=== PATIENT | male | born 1980 | race Caucasian/White ===

== ENCOUNTER 2018-11-18 13:01 | Emergency (ER) | payer MEDICAID ==
[~2018-11-18] VITALS: Ht 167.6 cm; Wt 56.8 kg
[2018-11-18 13:27] VITALS: BP 123/91
== END 2018-11-18 13:50 | disposition home or self-care (01) ==
LOC: ER 13:02
DX: F10.20 Alcohol dependence, uncomplicated (principal); Z88.8 Allergy status to other drugs, medicaments and biological substances; Y90.9 Presence of alcohol in blood, level not specified
CPT/HCPCS: 99281

== ENCOUNTER 2019-02-20 20:30 | Emergency (ER) | payer MEDICAID, OTHER ==
[~2019-02-20] VITALS: Ht 167.6 cm; Wt 55.9 kg
[2019-02-20 21:09] VITALS: BP 146/92
[2019-02-20 21:37] LABS: BASOPHILS # (AUTO) 0.1 X10'3 (0-0.2); BASOPHILS % (AUTO) 0.8 % (0-1); EOSINOPHILS # (AUTO) 0.1 X10'3 (0-0.9); EOSINOPHILS % (AUTO) 0.9 % (0-6); HEMATOCRIT 37.6 % (42.0-52.0); HEMOGLOBIN 13.1 g/dl (14.0-17.9); LYMPHOCYTES % (AUTO) 16.8 % (21-51); MEAN CORPUSCULAR HEMOGLOBIN 32.1 PG (27.0-31.0); MEAN CORPUSCULAR HGB CONC 34.8 g/dL (33.0-36.5); MEAN CORPUSCULAR VOLUME 92.3 FL (78-98); MEAN PLATELET VOLUME 6.5 FL (7.4-10.4); MONOCYTES # (AUTO) 0.7 X10'3 (0-0.9); MONOCYTES % (AUTO) 5.9 % (2-12); NEUTROPHILS % (AUTO) 75.6 % (42-75); PLATELET COUNT 321 X10'3 (140-440); RED BLOOD COUNT 4.08 X10'6 (4.70-6.10); RED CELL DISTRIBUTION WIDTH 13.6 % (11.5-14.5); WHITE BLOOD COUNT 11.9 X10'3 (4.5-11.0)
[2019-02-20] MEDS ORDERED: proCHLORperazine 10mg tablet PO ONE (21:40)
[2019-02-20] MEDS ORDERED: sulfamethoxazole/trimethoprim DS (800/160mg) tablet PO ONE (21:40)
[2019-02-20] MEDS ORDERED: bacitracin 15gm ointment TP ONE (21:40)
[2019-02-20 21:46] LABS: PARTIAL THROMBOPLASTIN TIME 32 SECONDS (22-32)
[2019-02-20 21:50] LABS: ALANINE AMINOTRANSFERASE 26 U/L (12-78); ALBUMIN/GLOBULIN RATIO 1.1 (1.1-1.5); ALKALINE PHOSPHATASE 122 IU/L (46-116); ANION GAP 14 (8-16); ASPARTATE AMINO TRANSFERASE 24 U/L (10-37); BILIRUBIN,TOTAL 0.4 MG/DL (0.1-1.0); BLOOD UREA NITROGEN 8 MG/DL (7-18); BUN/CREATININE RATIO 9.5 (5.4-32.0); CALCIUM 8.8 MG/DL (8.5-10.1); CHLORIDE 105 MMOL/L (99-107); CREATININE 0.84 MG/DL (0.60-1.10); GLUCOSE 93 MG/DL (70-104); POTASSIUM 3.1 MMOL/L (3.5-5.1); SODIUM 143 MMOL/L (135-145); TOTAL CARBON DIOXIDE 24.4 MMOL/L (24-32); TOTAL PROTEIN 7.5 G/DL (6.4-8.2); eGFR > 90 ML/MIN
[2019-02-20] MEDS ORDERED: SULF1TAB49 PO (22:10)
[2019-02-20] MEDS ORDERED: potassium Cl 20 mEq SR tablet PO STA (22:22)
== END 2019-02-20 22:34 | disposition home or self-care (01) ==
LOC: ER 20:30
DX: L02.413 Cutaneous abscess of right upper limb (principal); L02.11 Cutaneous abscess of neck; L03.113 Cellulitis of right upper limb; R79.1 Abnormal coagulation profile; Z59.0 Homelessness; Z88.8 Allergy status to other drugs, medicaments and biological substances; Z79.899 Other long term (current) drug therapy
CPT/HCPCS: 10060; 36415; 80053; 84145; 85025; 85610; 85730; 87040; 99284; Q0164

== ENCOUNTER 2019-02-27 06:54 | Emergency (ER) | payer OTHER ==
[~2019-02-27] VITALS: Ht 167.6 cm; Wt 56.0 kg
[~2019-02-27 06:54] MED LIST: SULF1TAB49 PO
[2019-02-27 06:57] VITALS: BP 121/88
[2019-02-27] MEDS ORDERED: TAM75C PO (07:31)
== END 2019-02-27 07:38 | disposition home or self-care (01) ==
LOC: ER 06:54
DX: J11.1 Influenza due to unidentified influenza virus with other respiratory manifestations (principal); Z59.0 Homelessness; Z88.8 Allergy status to other drugs, medicaments and biological substances; Z79.899 Other long term (current) drug therapy
CPT/HCPCS: 99283

== ENCOUNTER 2019-06-19 14:11 | Emergency (ER) | payer MEDICAID ==
[~2019-06-19] VITALS: Ht 167.6 cm; Wt 56.8 kg
[2019-06-19 15:00] LABS: BASOPHILS # (AUTO) 0.1 X10'3 (0-0.2); BASOPHILS % (AUTO) 0.7 % (0-1); EOSINOPHILS % (AUTO) 0.3 % (0-6); HEMATOCRIT 47.4 % (42.0-52.0); HEMOGLOBIN 15.8 g/dl (14.0-17.9); LYMPHOCYTES # (AUTO) 1.4 X10'3 (1.1-4.8); LYMPHOCYTES % (AUTO) 12.2 % (21-51); MEAN CORPUSCULAR HEMOGLOBIN 31.7 PG (27.0-31.0); MEAN CORPUSCULAR HGB CONC 33.4 g/dL (33.0-36.5); MEAN CORPUSCULAR VOLUME 95.1 FL (78-98); MEAN PLATELET VOLUME 6.8 FL (7.4-10.4); MONOCYTES # (AUTO) 0.6 X10'3 (0-0.9); MONOCYTES % (AUTO) 5.3 % (2-12); NEUTROPHILS # (AUTO) 9.2 X10'3 (1.8-7.7); NEUTROPHILS % (AUTO) 81.5 % (42-75); PLATELET COUNT 294 X10'3 (140-440); RED BLOOD COUNT 4.99 X10'6 (4.70-6.10); RED CELL DISTRIBUTION WIDTH 16.3 % (11.5-14.5); WHITE BLOOD COUNT 11.3 X10'3 (4.5-11.0)
[2019-06-19 15:18] LABS: ALANINE AMINOTRANSFERASE 103 U/L (12-78); ALBUMIN 4.3 G/DL (3.4-5.0); ALBUMIN/GLOBULIN RATIO 1.2 (1.1-1.5); ALKALINE PHOSPHATASE 106 IU/L (46-116); ANION GAP 17 (8-16); ASPARTATE AMINO TRANSFERASE 335 U/L (10-37); BILIRUBIN,TOTAL 0.9 MG/DL (0.1-1.0); BLOOD UREA NITROGEN 11 MG/DL (7-18); BUN/CREATININE RATIO 12.1 (5.4-32.0); CALCIUM 9.1 MG/DL (8.5-10.1); CHLORIDE 99 MMOL/L (99-107); CREATININE 0.91 MG/DL (0.60-1.10); GLUCOSE 71 MG/DL (70-104); LIPASE 1114 U/L (73-393); POTASSIUM 3.9 MMOL/L (3.5-5.1); SODIUM 138 MMOL/L (135-145); TOTAL CARBON DIOXIDE 22.4 MMOL/L (24-32); TOTAL PROTEIN 7.8 G/DL (6.4-8.2); eGFR > 90 ML/MIN
[2019-06-19] MEDS ORDERED: proCHLORperazine 10 MG/2 ml inj IV ONE (15:25)
[2019-06-19] MEDS ORDERED: normal saline 1000ml 1,000 ML IV ONE ×2 (15:25)
[2019-06-19] MEDS ORDERED: morphine 4 MG/ML inj SYRINge IV ONE (15:25)
[2019-06-19 15:33] LABS: CLARITY,URINE CLOUDY (Clear); COLOR,URINE YELLOW (Yellow); GLUCOSE, URINE NEGATIVE (Neg); KETONES,URINE >=80 mg/dl (Neg); LEUKOCYTE ESTERASE ,URINE NEGATIVE (Neg); NITRITES, URINE NEGATIVE (Neg); OCCULT BLOOD,URINE TRACE-INTACT (Neg); PROTEIN,URINE 100 mg/dl (Neg)
[2019-06-19 15:33] LABS: ETHANOL 0.142 GM/DL (0.0-0.010)
[2019-06-19 15:39] LABS: UA COLLECTION TYPE CLN CATCH MIDSTREAM
[2019-06-19 15:41] LABS: CAL OXALATE CRYSTALS 2+ /HPF (NEGATIVE); MUCUS STRANDS MODERATE /LPF (Neg); SQUAMOUS EPITHELIAL CELL,UR FEW /LPF (FEW)
[2019-06-19 15:42] LABS: BACTERIA,URINE FEW /HPF (Neg); FINE GRANULAR CAST 0-3 /LPF (NEGATIVE)
[2019-06-19 15:43] LABS: RBC,URINE 0-2 /HPF (0-2); WBC,URINE 0-4 /HPF (0-4)
[2019-06-19] MEDS ORDERED: OXYC-481 PO (16:31)
[2019-06-19] MEDS ORDERED: CHLO25CA10 PO (16:31)
[2019-06-19] MEDS ORDERED: PROC-8 PO (16:31)
[2019-06-19 17:03] LABS: URINE AMPHETAMINE SCREEN NEGATIVE (Neg); URINE BARBITUATE SCREEN NEGATIVE (Neg); URINE BENZODIAZEPINES SCREEN NEGATIVE (Neg); URINE CANNABINOID SCREEN POSITIVE (Neg); URINE COCAINE SCREEN NEGATIVE (Neg); URINE METHADONE SCREEN NEGATIVE (Neg); URINE OPIATE SCREEN NEGATIVE (Neg); URINE PHENCYCLIDINE SCREEN NEGATIVE (Neg)
[2019-06-19 17:27] VITALS: BP 123/71
== END 2019-06-19 17:29 | disposition home or self-care (01) ==
LOC: ER 14:12
DX: K85.90 Acute pancreatitis without necrosis or infection, unspecified (principal); R11.2 Nausea with vomiting, unspecified; E86.0 Dehydration; Z59.0 Homelessness; Z88.8 Allergy status to other drugs, medicaments and biological substances; Z79.899 Other long term (current) drug therapy
CPT/HCPCS: 36415; 80053; 80305; 80320; 81001; 83690; 85025; 96374; 96375; 99284; J0780; J2270; J7030

== ENCOUNTER 2019-07-11 07:24 | Day surgery (SDC) | payer MEDICAID ==
[~2019-07-11] VITALS: Ht 167.6 cm; Wt 61.6 kg
[~2019-07-11 07:24] MED LIST changes: +CHLO25CA10 PO; +OXYC-481 PO; +PROC-8 PO; -SULF1TAB49 PO
[2019-07-11 07:35] VITALS: BP 112/76
[2019-07-11] MEDS ORDERED: fentaNYL/PF 50MCG/1 ML 2ML syringe ONE (07:42)
[2019-07-11] MEDS ORDERED: LIDOcaine Viscous 15ml cup ONE (07:42)
[2019-07-11] MEDS ORDERED: MIDAZolam 5mg/5ml vial ONE (07:42)
[2019-07-11] MEDS ORDERED: PARO10TA85 PO (07:50)
[2019-07-11] MEDS ORDERED: LURA20TA PO (07:51)
[2019-07-11] MEDS ORDERED: PANT20TA3 PO (07:51)
[2019-07-11] MEDS ORDERED: CLON-529 PO (07:52)
[2019-07-11] MEDS ORDERED: MULT-1085 PO (07:52)
[2019-07-11] MEDS ORDERED: DIVA-81 PO (07:53)
[2019-07-11] MEDS ORDERED: CYAN250010 PO (07:54)
[2019-07-11] MEDS ORDERED: FERR-116 PO (07:54)
[2019-07-11 10:16] VITALS: BP 103/67
[2019-07-11 10:26] VITALS: BP 100/69
[2019-07-11 10:36] VITALS: BP 102/67
[2019-07-11 10:46] VITALS: BP 105/74
== END 2019-07-11 11:00 | disposition home or self-care (01) ==
LOC: GI LAB 07:24
PROVIDERS: ATTEND Internal Medicine Gastroenterology
DX: D50.0 Iron deficiency anemia secondary to blood loss (chronic) (principal); K29.50 Unspecified chronic gastritis without bleeding
CPT/HCPCS: 43239; 99152; J2250; J3010; J7040; A4620

== ENCOUNTER 2019-07-25 17:13 | Inpatient (IN) | payer MEDICAID ==
[~2019-07-25] VITALS: Ht 167.6 cm; Wt 59.1 kg
[~2019-07-25 17:13] MED LIST changes: -CHLO25CA10 PO; +CLON-529 PO; +CYAN250010 PO; +DIVA-81 PO; +FERR-116 PO; +LURA20TA PO; +MULT-1085 PO; -OXYC-481 PO; +PANT20TA3 PO; +PARO10TA85 PO; -PROC-8 PO
[2019-07-25 18:05] LABS: ALANINE AMINOTRANSFERASE 35 U/L (12-78); ALBUMIN 4.4 G/DL (3.4-5.0); ALBUMIN/GLOBULIN RATIO 1.3 (1.1-1.5); ALKALINE PHOSPHATASE 133 IU/L (46-116); ANION GAP 14 (8-16); ASPARTATE AMINO TRANSFERASE 38 U/L (10-37); BILIRUBIN,TOTAL 0.6 MG/DL (0.1-1.0); BLOOD UREA NITROGEN 16 MG/DL (7-18); BUN/CREATININE RATIO 15.5 (5.4-32.0); CALCIUM 8.6 MG/DL (8.5-10.1); CHLORIDE 101 MMOL/L (99-107); CREATININE 1.03 MG/DL (0.60-1.10); GLUCOSE 133 MG/DL (70-104); POTASSIUM 3.8 MMOL/L (3.5-5.1); SODIUM 140 MMOL/L (135-145); TOTAL CARBON DIOXIDE 24.8 MMOL/L (24-32); TOTAL PROTEIN 7.9 G/DL (6.4-8.2); eGFR 80 ML/MIN
[2019-07-25 18:06] LABS: LIPASE 2136 U/L (73-393)
[2019-07-25 18:15] LABS: BASOPHILS # (AUTO) 0.1 X10'3 (0-0.2); BASOPHILS % (AUTO) 0.5 % (0-1); EOSINOPHILS % (AUTO) 0.2 % (0-6); HEMATOCRIT 48.6 % (42.0-52.0); HEMOGLOBIN 16.8 g/dl (14.0-17.9); LYMPHOCYTES # (AUTO) 1.9 X10'3 (1.1-4.8); LYMPHOCYTES % (AUTO) 13.6 % (21-51); MEAN CORPUSCULAR HEMOGLOBIN 31.8 PG (27.0-31.0); MEAN CORPUSCULAR HGB CONC 34.5 g/dL (33.0-36.5); MEAN CORPUSCULAR VOLUME 92.2 FL (78-98); MEAN PLATELET VOLUME 7.2 FL (7.4-10.4); MONOCYTES # (AUTO) 0.7 X10'3 (0-0.9); MONOCYTES % (AUTO) 4.7 % (2-12); NEUTROPHILS # (AUTO) 11.4 X10'3 (1.8-7.7); PLATELET COUNT 235 X10'3 (140-440); RED BLOOD COUNT 5.28 X10'6 (4.70-6.10); RED CELL DISTRIBUTION WIDTH 14.7 % (11.5-14.5); WHITE BLOOD COUNT 14.1 X10'3 (4.5-11.0)
[2019-07-25] MEDS ORDERED: normal saline 1000ML IV soln IVB ONE (18:30)
[2019-07-25 18:50] LABS: CLARITY,URINE SLIGHTLY CLOUDY (Clear); COLOR,URINE YELLOW (Yellow); GLUCOSE, URINE NEGATIVE (Neg); KETONES,URINE TRACE mg/dl (Neg); LEUKOCYTE ESTERASE ,URINE NEGATIVE (Neg); NITRITES, URINE NEGATIVE (Neg); OCCULT BLOOD,URINE NEGATIVE (Neg); PROTEIN,URINE 100 mg/dl (Neg)
[2019-07-25 19:08] LABS: UA COLLECTION TYPE NON-SPECIFIED
[2019-07-25 19:10] LABS: BACTERIA,URINE NONE SEEN /HPF (Neg); SQUAMOUS EPITHELIAL CELL,UR NONE SEEN /LPF (FEW); WBC,URINE NONE SEEN /HPF (0-4)
[2019-07-25 19:11] LABS: HYALINE CASTS 0-3 /LPF (NEGATIVE); MUCUS STRANDS MANY /LPF (Neg); RBC,URINE 0-2 /HPF (0-2)
[2019-07-25 19:55] LABS: ETHANOL 0.229 GM/DL (0.0-0.010); MAGNESIUM 1.9 MG/DL (1.5-2.4)
[2019-07-25] MEDS ORDERED: iohexol 300mg/ml 100ml inj. ONE (19:55)
[2019-07-25] MEDS ORDERED: proCHLORperazine 10 MG/2 ml inj IV ONE (20:00)
[2019-07-25] MEDS ORDERED: ketorolac tromethamine 15mg/ml inj. IV ONE (20:00)
[2019-07-25] MEDS ORDERED: diphenhydrAMINE 50 mg/ml inj IV ONE (20:00)
[2019-07-25 20:03] LABS: PARTIAL THROMBOPLASTIN TIME 27 SECONDS (22-32)
[2019-07-25] MEDS ORDERED: magnesium 4gm in 100ml NS 100 ML IV PRN (20:40)
[2019-07-25] MEDS ORDERED: thiamine inj. 100 MG in normal saline 100ml IV soln 100 ML IV ONE (20:40)
[2019-07-25] MEDS ORDERED: acetaminophen 325mg tablet PO PRN ×2 (20:40)
[2019-07-25] MEDS ORDERED: magnesium Cl slow-release 64mg tablet PO PRN (20:40)
[2019-07-25] MEDS ORDERED: HYDROmorphone inj. 0.5 MG/0.5 ML DISP.SYRIN IV PRN (20:40)
[2019-07-25] MEDS ORDERED: magnesium hydroxide 30ml (MOM) UD suspension PO PRN (20:40)
[2019-07-25] MEDS ORDERED: potassium Cl 20 mEq SR tablet PO PRN ×2 (20:40)
[2019-07-25] MEDS ORDERED: HYDROcodone/acetaminophen 5mg/325mg tablet PO PRN (20:40)
[2019-07-25] MEDS ORDERED: potassium CL 10mEq/100ml bag 100 ML IV PRN (20:40)
[2019-07-25] MEDS ORDERED: metoclopramide 5 mg/ml inj IV PRN (20:40)
[2019-07-25] MEDS ORDERED: magnesium 2GM in 50ml NS 50 ML IV PRN (20:40)
[2019-07-25] MEDS ORDERED: haloperidol lactate 5mg/ml inj IM PRN (20:40)
[2019-07-25] MEDS ORDERED: HYDROcodone/acetaminophen 10/325mg tab PO PRN (20:40)
[2019-07-25] MEDS ORDERED: haloperidol 5mg tablet PO PRN (20:40)
[2019-07-25] MEDS ORDERED: mag hydrox/Alum hydrox/simeth 30ml oral suspension PO PRN (20:40)
[2019-07-25] MEDS ORDERED: LORazepam 2 mg/ml vial IV PRN (20:40)
[2019-07-25] MEDS: folic acid inj. 2 MG, thiamine inj. 100 MG, MVI, adult No.4 with vit. K 10 ML in dextro... IV SCH ×4 (21:00)
[2019-07-25] MEDS ORDERED: temazepam 15mg capsule PO PRN (21:00)
[2019-07-25] MEDS: folic acid 1mg tablet PO SCH (21:06)
[2019-07-25] MEDS: normal saline 1000ml 1,000 ML IV SCH (21:07)
[2019-07-25] MEDS: thiamine 100mg tablet PO SCH (21:07)
[2019-07-25] MEDS: HYDROmorphone 1 mg/ml syringe IV PRN (22:53)
[2019-07-26] VITALS: BP 124/89
[2019-07-26] MEDS: HYDROmorphone 1 mg/ml syringe IV PRN ×6 (02:59→21:04)
[2019-07-26 05:37] LABS: BASOPHILS % (AUTO) 0.3 % (0-1); EOSINOPHILS # (AUTO) 0.1 X10'3 (0-0.9); EOSINOPHILS % (AUTO) 1.1 % (0-6); HEMATOCRIT 40.3 % (42.0-52.0); HEMOGLOBIN 13.7 g/dl (14.0-17.9); LYMPHOCYTES # (AUTO) 1.7 X10'3 (1.1-4.8); LYMPHOCYTES % (AUTO) 13.9 % (21-51); MEAN CORPUSCULAR HEMOGLOBIN 31.3 PG (27.0-31.0); MEAN CORPUSCULAR HGB CONC 33.9 g/dL (33.0-36.5); MEAN CORPUSCULAR VOLUME 92.3 FL (78-98); MEAN PLATELET VOLUME 7.4 FL (7.4-10.4); MONOCYTES # (AUTO) 0.6 X10'3 (0-0.9); MONOCYTES % (AUTO) 4.8 % (2-12); NEUTROPHILS # (AUTO) 9.7 X10'3 (1.8-7.7); NEUTROPHILS % (AUTO) 79.9 % (42-75); PLATELET COUNT 169 X10'3 (140-440); RED BLOOD COUNT 4.37 X10'6 (4.70-6.10); RED CELL DISTRIBUTION WIDTH 14.5 % (11.5-14.5); WHITE BLOOD COUNT 12.2 X10'3 (4.5-11.0)
[2019-07-26 05:50] LABS: ALANINE AMINOTRANSFERASE 30 U/L (12-78); ALBUMIN 3.3 G/DL (3.4-5.0); ALBUMIN/GLOBULIN RATIO 1.2 (1.1-1.5); ALKALINE PHOSPHATASE 115 IU/L (46-116); ANION GAP 11 (8-16); ASPARTATE AMINO TRANSFERASE 27 U/L (10-37); BILIRUBIN,TOTAL 0.7 MG/DL (0.1-1.0); BLOOD UREA NITROGEN 13 MG/DL (7-18); BUN/CREATININE RATIO 16.5 (5.4-32.0); CALCIUM 7.2 MG/DL (8.5-10.1); CHLORIDE 109 MMOL/L (99-107); CHOLESTEROL 116 MG/DL (0-200); CREATININE 0.79 MG/DL (0.60-1.10); GLUCOSE 99 MG/DL (70-104); HDL CHOLESTEROL 57 MG/DL (35-60); LDL CHOLESTEROL 17 MG/DL (50-100); MAGNESIUM 1.4 MG/DL (1.5-2.4); POTASSIUM 3.3 MMOL/L (3.5-5.1); SODIUM 144 MMOL/L (135-145); TOTAL CARBON DIOXIDE 23.8 MMOL/L (24-32); TRIGLYCERIDES 341 MG/DL (20-135); eGFR > 90 ML/MIN
--- NOTE | 2019-07-26 06:16 | NUR ---
Patient in room AL 359. I have received report from ESTIVEN Cervantes and had the opportunity to ask questions and assume patient care.
[2019-07-26] MEDS: K and/or MAG REPLACEMENT MC SCH ×2 (06:56→20:00)
[2019-07-26 07:00] VITALS: BP 158/93
[2019-07-26] MEDS: folic acid inj. 2 MG, thiamine inj. 100 MG, MVI, adult No.4 with vit. K 10 ML in dextro... IV SCH ×4 (07:38)
[2019-07-26] MEDS: potassium CL 10mEq/100ml bag 100 ML IV PRN ×4 (07:39→13:32)
[2019-07-26] MEDS: enoxaparin 40mg/0.4ml syringe SUBCUT SCH (07:40)
[2019-07-26] MEDS: pantoprazole 40mg Tablet.DR PO SCH (07:41)
[2019-07-26] MEDS: normal saline 1000ml 1,000 ML IV SCH ×3 (07:49→21:13)
[2019-07-26] MEDS: folic acid 1mg tablet PO SCH (08:00)
[2019-07-26] MEDS: thiamine 100mg tablet PO SCH (08:00)
[2019-07-26] MEDS: multivitamins, therapeutics tablet PO SCH (09:23)
[2019-07-26 11:00] VITALS: BP 142/96
--- NOTE | 2019-07-26 18:11 | NUR ---
Problems reprioritized. Patient report given, questions answered & plan of care reviewed with ESTIVEN Cervantes.
[2019-07-26 19:00] VITALS: BP 155/100
--- NOTE | 2019-07-26 20:41 | NUR ---
Patient in room AL 359. I have received report from ESTIVEN Cervantes and had the opportunity to ask questions and assume patient care.
[2019-07-27 00:25] VITALS: BP 145/91
[2019-07-27] MEDS: HYDROmorphone 1 mg/ml syringe IV PRN (01:14)
[2019-07-27] MEDS: normal saline 1000ml 1,000 ML IV SCH (05:21)
[2019-07-27 05:23] LABS: ALANINE AMINOTRANSFERASE 23 U/L (12-78); ALBUMIN 3.3 G/DL (3.4-5.0); ALKALINE PHOSPHATASE 124 IU/L (46-116); ANION GAP 11 (8-16); ASPARTATE AMINO TRANSFERASE 31 U/L (10-37); BILIRUBIN,TOTAL 0.8 MG/DL (0.1-1.0); BLOOD UREA NITROGEN 2 MG/DL (7-18); CALCIUM 7.8 MG/DL (8.5-10.1); CHLORIDE 101 MMOL/L (99-107); CREATININE 0.67 MG/DL (0.60-1.10); GLUCOSE 100 MG/DL (70-104); LIPASE 927 U/L (73-393); MAGNESIUM 2.3 MG/DL (1.5-2.4); POTASSIUM 3.2 MMOL/L (3.5-5.1); SODIUM 135 MMOL/L (135-145); TOTAL CARBON DIOXIDE 22.8 MMOL/L (24-32); TOTAL PROTEIN 6.6 G/DL (6.4-8.2); eGFR > 90 ML/MIN
[2019-07-27 05:28] LABS: BASOPHILS % (AUTO) 0.5 % (0-1); EOSINOPHILS # (AUTO) 0.2 X10'3 (0-0.9); EOSINOPHILS % (AUTO) 2.6 % (0-6); HEMATOCRIT 40.3 % (42.0-52.0); HEMOGLOBIN 13.9 g/dl (14.0-17.9); LYMPHOCYTES # (AUTO) 1.1 X10'3 (1.1-4.8); LYMPHOCYTES % (AUTO) 12.8 % (21-51); MEAN CORPUSCULAR HEMOGLOBIN 31.8 PG (27.0-31.0); MEAN CORPUSCULAR HGB CONC 34.4 g/dL (33.0-36.5); MEAN CORPUSCULAR VOLUME 92.3 FL (78-98); MEAN PLATELET VOLUME 7.8 FL (7.4-10.4); MONOCYTES # (AUTO) 0.4 X10'3 (0-0.9); NEUTROPHILS # (AUTO) 6.6 X10'3 (1.8-7.7); NEUTROPHILS % (AUTO) 79.1 % (42-75); PLATELET COUNT 134 X10'3 (140-440); RED BLOOD COUNT 4.37 X10'6 (4.70-6.10); WHITE BLOOD COUNT 8.3 X10'3 (4.5-11.0)
[2019-07-27 06:00] VITALS: BP 154/95
--- NOTE | 2019-07-27 06:23 | NUR ---
Problems reprioritized. Patient report given, questions answered & plan of care reviewed with ESTIVEN Cristobal.
--- NOTE | 2019-07-27 06:46 | NUR ---
Patient in room AL 359. I have received report from Unique JEAN-BAPTISTE and had the opportunity to ask questions and assume patient care.
[2019-07-27 08:00] VITALS: BP 154/95
[2019-07-27] MEDS: K and/or MAG REPLACEMENT MC SCH (08:00)
[2019-07-27] MEDS: multivitamins, therapeutics tablet PO SCH (08:09)
[2019-07-27] MEDS: folic acid 1mg tablet PO SCH (08:09)
[2019-07-27] MEDS: pantoprazole 40mg Tablet.DR PO SCH (08:10)
[2019-07-27] MEDS: thiamine 100mg tablet PO SCH (08:10)
[2019-07-27] MEDS: enoxaparin 40mg/0.4ml syringe SUBCUT SCH (08:11)
[2019-07-27] MEDS ORDERED: diphenhydrAMINE 25mg capsule PO ONE (10:10)
[2019-07-27] MEDS ORDERED: HYDR-4383 PO (10:36)
--- NOTE | 2019-07-27 11:29 | NUR ---
Pt Dc to a [facility] room he has rented. Pt is an out pt to [place] following a sobriety program. Pt is A & O x4, in no apparent distress. Pt packed his belongings and stated he will walk 2 blocks to his hotel. Pt's potassium is 3.2 being replaced. Pt took a 20mEq and Dr Forbes is OK with pt being DC home without having the remaining 2 doses. Pt states he will go back and stay free of alcohol.
[2019-07-27] MEDS ORDERED: LORazepam 1 MG tablet PO PRN (20:40)
[2019-07-27] MEDS ORDERED: LORazepam 2 mg/ml vial IV PRN (20:40)
[2019-07-29] MEDS ORDERED: LORazepam 2 mg/ml vial IV PRN (20:40)
[2019-07-29] MEDS ORDERED: LORazepam 1 MG tablet PO PRN (20:40)
== END 2019-07-27 11:30 | disposition home or self-care (01) | DRG 282 ==
LOC: ER 17:14 → ED HOLD 20:39 → SUR 3N 22:49
PROVIDERS: ADMIT Family Medicine; ATTEND Internal Medicine
PROC: BW211ZZ Computerized Tomography (CT Scan) of Abdomen and Pelvis using Low Osmolar Contrast (ICD-10-PCS; principal; 2019-07-25)
DX: K85.20 Alcohol induced acute pancreatitis without necrosis or infection (principal); E87.6 Hypokalemia; F10.20 Alcohol dependence, uncomplicated; I10 Essential (primary) hypertension; R01.1 Cardiac murmur, unspecified; F32.9 Major depressive disorder, single episode, unspecified; Z59.0 Homelessness; Z88.8 Allergy status to other drugs, medicaments and biological substances
CPT/HCPCS: 36415; 74177; 80053; 80061; 80320; 81001; 83690; 83735; 85025; 85610; 85730; 87081; 99285; G0378; J0780; J1170; J1200; J1650; J1885; J3411; J3475; J3480; J3490; J7030; J7060; Q0163; Q9967

== ENCOUNTER 2019-09-11 09:17 | Day surgery (SDC) | payer MEDICAID ==
[2019-09-01 14:43] LABS: BASOPHILS % (AUTO) 0.7 % (0-1); EOSINOPHILS # (AUTO) 0.2 X10'3 (0-0.9); EOSINOPHILS % (AUTO) 3.5 % (0-6); LYMPHOCYTES # (AUTO) 0.9 X10'3 (1.1-4.8); LYMPHOCYTES % (AUTO) 17.7 % (21-51); MEAN CORPUSCULAR HEMOGLOBIN 33.1 PG (27.0-31.0); MEAN CORPUSCULAR HGB CONC 33.8 g/dL (33.0-36.5); MEAN CORPUSCULAR VOLUME 97.8 FL (78-98); MEAN PLATELET VOLUME 7.3 FL (7.4-10.4); MONOCYTES # (AUTO) 0.5 X10'3 (0-0.9); NEUTROPHILS # (AUTO) 3.5 X10'3 (1.8-7.7); NEUTROPHILS % (AUTO) 68.1 % (42-75); PRE OP HEMOGLOBIN 13.5 g/dL (14.0-17.9); PRE OP PLATELET COUNT 225 X10'3 (140-440); RED BLOOD COUNT 4.09 X10'6 (4.70-6.10)
[2019-09-01 14:55] LABS: ALBUMIN 4.5 G/DL (3.4-5.0); ALBUMIN/GLOBULIN RATIO 1.1 (1.1-1.5); ALKALINE PHOSPHATASE 147 IU/L (46-116); BLOOD UREA NITROGEN 8 MG/DL (7-18); CALCIUM 10.3 MG/DL (8.5-10.1); CHLORIDE 93 MMOL/L (99-107); PRE OP ANION GAP 16 (8-16); PRE OP BILIRUB, TOTAL 0.8 MG/DL (0.0-1.0); PRE OP GLUCOSE 89 MG/DL (70-104); PRE OP POTASSIUM 3.5 MMOL/L (3.4-5.1); PRE OP SODIUM 132 MMOL/L (135-145); TOTAL CARBON DIOXIDE 23.5 MMOL/L (24-32); TOTAL PROTEIN 8.6 G/DL (6.4-8.2); eGFR > 90 ML/MIN
[2019-09-01 14:58] LABS: PRE OP ALT 84 U/L (30-65); PRE OP AST 116 U/L (10-37)
[2019-09-01 15:15] LABS: PRE OP PROTIME 10.5 SECONDS (9.0-12.0)
[~2019-09-11] VITALS: Ht 167.6 cm; Wt 59.0 kg
[2019-09-11] VITALS (9 sets, daily range): BP systolic 114–173; BP diastolic 75–113
[~2019-09-11 09:17] MED LIST changes: -CLON-529 PO; +CLON0.1T2 PO; -DIVA-81 PO; -LURA20TA PO; -PARO10TA85 PO; +VANCOMYCIN INJ 1000 MG in NORMAL SALINE 250ml IV.SOLN IV ONE; +acetaminophen 325mg tablet PO ONE; +ascorbic acid 500mg tablet PO ONE; +cefazolin/dext.iso 2gm/50ml 50 ML IV ONE; +celeCOXIB 100mg capsule PO ONE; +duloxetine 20mg capsule.DR PO ONE; +famotidine 20mg tablet PO ONE; +gabapentin 300mg capsule PO ONE; +metoclopramide 5 mg/ml inj IV ONE; +oxyCODONE SR 10mg (sust. release) tab -2 tabs (20mg) PO ONE; +ringers solution, lacted 1,000 ML IV SCH; +tranexamic acid 1gm/0.7% sal. 100 ML IV ONE
[2019-09-11] MEDS ORDERED: NALT50TA PO (09:41)
[2019-09-11] MEDS ORDERED: LURA40TA3 PO (09:41)
[2019-09-11] MEDS ORDERED: BUPIVAcaine/PF 2.5 mg/ml (0.25%) 30ml vial ONE (09:53)
[2019-09-11] MEDS ORDERED: methylPREDNISolone sod succ 125mg/2ml vial ONE (09:53)
[2019-09-11] MEDS ORDERED: aprepitant 40mg capsule PO ONE (09:58)
[2019-09-11] MEDS ORDERED: cloNIDine hcl/PF 100mcg/ml inj ONE (10:00)
[2019-09-11] MEDS ORDERED: fentaNYL/PF 50MCG/1 ML 2ML syringe ONE (10:01)
[2019-09-11] MEDS ORDERED: ringers solution, lacted 1,000 ML IV SCH (10:04)
[2019-09-11] MEDS ORDERED: morphine 2 MG/ML inj. syringe IV PRN (10:05)
[2019-09-11] MEDS ORDERED: morphine 4 MG/ML inj SYRINge IV PRN (10:05)
[2019-09-11] MEDS ORDERED: meperidine/PF 25mg/ml syringe IV PRN (10:05)
[2019-09-11] MEDS ORDERED: proCHLORperazine 10 MG/2 ml inj IV PRN (10:05)
[2019-09-11] MEDS ORDERED: proMETHazine 25mg rectal suppository RC PRN (10:05)
[2019-09-11] MEDS ORDERED: HYDROmorphone inj. 0.5 MG/0.5 ML DISP.SYRIN IV PRN ×2 (10:05)
[2019-09-11] MEDS ORDERED: midazolam 2 mg/2 ml injection ONE (10:08)
[2019-09-11] MEDS ORDERED: sevoflurane 250ml liquid IH ONE (10:12)
[2019-09-11] MEDS ORDERED: ROPIVAcaine 0.5% (5mg/ml) 30ml vial ONE (11:12)
[2019-09-11] MEDS ORDERED: LIDOcaine 2% (20mg/ml) 5ml vial ONE (11:12)
[2019-09-11] MEDS ORDERED: ePHEDrine 50MG/ML INJ. ONE (11:12)
[2019-09-11] MEDS ORDERED: propofol inj 20 ML IV ONE (11:12)
[2019-09-11] MEDS ORDERED: dexamethasone sod phosphate 4mg/ml inj. ONE (11:12)
--- NOTE | 2019-09-11 12:10 | NUR ---
Received from OR via [facility] , accompanied by Anesthesiologist PILAR and report given by Anesthesiolgist. PATIENT WITH 20G PIV IN LEFT UE RUNNING LR AT 100. DENIES PAIN. RIGHT ELBOW AND WRIST DRESSINGS CDI. VSS. Addendum: 09/11/19 at 1220 by Chris Martínez RN, RN Amended: Links added.
--- NOTE | 2019-09-11 13:30 | NUR ---
I HAVE REVIEWED D/C INSTRUCTIONS WITH PATIENT AND FAMILY AND THEY HAVE VERBALIZED UNDERSTANDING. PATIENT D/C HOME WITH ALL BELONGINGS AND FAMILY GAVE TRANSPORT HOME. PATIENTS ANESTHEOLOGIST CALLED RE BP. DECIDED THAT HE DID NOT WISH TO TREAT HTN AT THIS TIME- ONLY TO ADVISE PATIENT TO SEE HIM PRIMARY PHYSICIAN FOR BP MEDS (WHICH HE IS ALREADY ON.) OUT [facility]IA [facility] Addendum: 09/11/19 at 1339 by Chris Lam - ESTIVEN JEAN-BAPTISTE Amended: Links added.
== END 2019-09-11 13:30 | disposition home or self-care (01) ==
LOC: PAS 09:17
PROVIDERS: ATTEND Orthopaedic Surgery
DX: G56.01 Carpal tunnel syndrome, right upper limb (principal); G56.21 Lesion of ulnar nerve, right upper limb; M79.641 Pain in right hand; Z79.899 Other long term (current) drug therapy; Z79.01 Long term (current) use of anticoagulants
CPT/HCPCS: 36415; 64417; 64718; 64721; 80053; 82948; 85025; 85610; 85730; 93005; A6222; J0735; J1100; J2001; J2250; J2704; J2930; J3010; J3370; J3490; J8501; L3999; U0003; A4215; A4618; A6250; A6449; A7000; J2795; J7120

== ENCOUNTER 2019-10-20 22:35 | Emergency (ER) | payer MEDICAID ==
[~2019-10-20] VITALS: Ht 167.6 cm; Wt 59.1 kg
[~2019-10-20 22:35] MED LIST changes: +LURA40TA3 PO; -MULT-1085 PO; +NALT50TA PO; -VANCOMYCIN INJ 1000 MG in NORMAL SALINE 250ml IV.SOLN IV ONE; -acetaminophen 325mg tablet PO ONE; -ascorbic acid 500mg tablet PO ONE; -cefazolin/dext.iso 2gm/50ml 50 ML IV ONE; -celeCOXIB 100mg capsule PO ONE; -duloxetine 20mg capsule.DR PO ONE; -famotidine 20mg tablet PO ONE; -gabapentin 300mg capsule PO ONE; -metoclopramide 5 mg/ml inj IV ONE; -oxyCODONE SR 10mg (sust. release) tab -2 tabs (20mg) PO ONE; -ringers solution, lacted 1,000 ML IV SCH; -tranexamic acid 1gm/0.7% sal. 100 ML IV ONE
[2019-10-20 23:29] LABS: BASOPHILS # (AUTO) 0.1 X10'3 (0-0.2); BASOPHILS % (AUTO) 0.7 % (0-1); EOSINOPHILS % (AUTO) 0.4 % (0-6); HEMATOCRIT 41.4 % (42.0-52.0); HEMOGLOBIN 14.2 g/dl (14.0-17.9); LYMPHOCYTES # (AUTO) 1.7 X10'3 (1.1-4.8); LYMPHOCYTES % (AUTO) 17.4 % (21-51); MEAN CORPUSCULAR HEMOGLOBIN 32.8 PG (27.0-31.0); MEAN CORPUSCULAR HGB CONC 34.3 g/dL (33.0-36.5); MEAN CORPUSCULAR VOLUME 95.4 FL (78-98); MEAN PLATELET VOLUME 6.4 FL (7.4-10.4); MONOCYTES # (AUTO) 0.3 X10'3 (0-0.9); NEUTROPHILS # (AUTO) 7.7 X10'3 (1.8-7.7); NEUTROPHILS % (AUTO) 78.5 % (42-75); PLATELET COUNT 201 X10'3 (140-440); RED BLOOD COUNT 4.34 X10'6 (4.70-6.10); RED CELL DISTRIBUTION WIDTH 14.1 % (11.5-14.5); WHITE BLOOD COUNT 9.8 X10'3 (4.5-11.0)
[2019-10-20 23:44] LABS: ALANINE AMINOTRANSFERASE 38 U/L (12-78); ALBUMIN 4.2 G/DL (3.4-5.0); ALBUMIN/GLOBULIN RATIO 1.3 (1.1-1.5); ALKALINE PHOSPHATASE 138 IU/L (46-116); ANION GAP 16 (8-16); ASPARTATE AMINO TRANSFERASE 33 U/L (10-37); BILIRUBIN,TOTAL 0.3 MG/DL (0.1-1.0); BLOOD UREA NITROGEN 16 MG/DL (7-18); BUN/CREATININE RATIO 17.4 (5.4-32.0); CALCIUM 7.9 MG/DL (8.5-10.1); CHLORIDE 103 MMOL/L (99-107); CREATININE 0.92 MG/DL (0.60-1.10); GLUCOSE 89 MG/DL (70-104); LIPASE 1043 U/L (73-393); POTASSIUM 3.6 MMOL/L (3.5-5.1); SODIUM 139 MMOL/L (135-145); TOTAL CARBON DIOXIDE 19.6 MMOL/L (24-32); TOTAL PROTEIN 7.5 G/DL (6.4-8.2); eGFR > 90 ML/MIN
[2019-10-20 23:53] LABS: CLARITY,URINE CLOUDY (Clear); COLOR,URINE YELLOW (Yellow); GLUCOSE, URINE NEGATIVE (Neg); KETONES,URINE 15 mg/dl (Neg); LEUKOCYTE ESTERASE ,URINE NEGATIVE (Neg); NITRITES, URINE NEGATIVE (Neg); OCCULT BLOOD,URINE NEGATIVE (Neg); PROTEIN,URINE 30 mg/dl (Neg); UA COLLECTION TYPE CLN CATCH MIDSTREAM; UROBILINOGEN,URINE 0.2 E.U/dL (0.2-1.0)
[2019-10-20 23:58] LABS: AMORPHOUS URATES 4+; BACTERIA,URINE NONE SEEN /HPF (Neg); RBC,URINE NONE SEEN /HPF (0-2); SQUAMOUS EPITHELIAL CELL,UR FEW /LPF (FEW); WBC,URINE NONE SEEN /HPF (0-4)
[2019-10-21] MEDS ORDERED: normal saline 1000ml 1,000 ML IV ONE
[2019-10-21] MEDS ORDERED: morphine 10mg/ml inj. IV ONE (00:10)
[2019-10-21] MEDS ORDERED: metoclopramide 5 mg/ml inj IV ONE (00:10)
[2019-10-21] MEDS ORDERED: oxyCODONE/APAP 10/325mg tablet PO ONE (01:25)
--- NOTE | 2019-10-21 01:51 | NUR ---
pt drove self here. as pt to be given narcotics, he will leave his car in parking lot and [facility] and he will return later today to pu vehicle.
[2019-10-21] MEDS ORDERED: METO5TAB85 PO (02:30)
[2019-10-21] MEDS ORDERED: OXYC-658 PO (02:30)
[2019-10-21 03:06] VITALS: BP 120/78
[2019-10-22] MEDS ORDERED: OXYC-658 PO (17:08)
[2019-10-22] MEDS ORDERED: PROC-8 PO (17:12)
== END 2019-10-21 02:48 | disposition home or self-care (01) ==
LOC: ER 22:36
DX: K85.90 Acute pancreatitis without necrosis or infection, unspecified (principal); R19.7 Diarrhea, unspecified; F31.9 Bipolar disorder, unspecified; Z59.0 Homelessness; Z72.89 Other problems related to lifestyle; Z88.5 Allergy status to narcotic agent; Z79.899 Other long term (current) drug therapy
CPT/HCPCS: 36415; 80053; 81001; 83690; 85025; 96361; 96374; 96375; 99284; J2270; J2765; J7030

== ENCOUNTER 2019-10-22 15:15 | Emergency (ER) | payer MEDICAID ==
[~2019-10-22] VITALS: Ht 167.6 cm; Wt 55.3 kg
[~2019-10-22 15:15] MED LIST changes: +METO5TAB85 PO; +OXYC-658 PO
[2019-10-22 15:46] LABS: BASOPHILS % (AUTO) 0.6 % (0-1); EOSINOPHILS # (AUTO) 0.1 X10'3 (0-0.9); HEMATOCRIT 38.7 % (42.0-52.0); HEMOGLOBIN 13.1 g/dl (14.0-17.9); LYMPHOCYTES # (AUTO) 2.1 X10'3 (1.1-4.8); LYMPHOCYTES % (AUTO) 34.6 % (21-51); MEAN CORPUSCULAR HEMOGLOBIN 31.9 PG (27.0-31.0); MEAN CORPUSCULAR HGB CONC 33.9 g/dL (33.0-36.5); MEAN CORPUSCULAR VOLUME 94.1 FL (78-98); MEAN PLATELET VOLUME 6.6 FL (7.4-10.4); MONOCYTES # (AUTO) 0.5 X10'3 (0-0.9); MONOCYTES % (AUTO) 8.1 % (2-12); NEUTROPHILS # (AUTO) 3.5 X10'3 (1.8-7.7); NEUTROPHILS % (AUTO) 55.7 % (42-75); PLATELET COUNT 213 X10'3 (140-440); RED BLOOD COUNT 4.11 X10'6 (4.70-6.10); WHITE BLOOD COUNT 6.2 X10'3 (4.5-11.0)
[2019-10-22 16:07] LABS: ALANINE AMINOTRANSFERASE 34 U/L (12-78); ALBUMIN 4.4 G/DL (3.4-5.0); ALBUMIN/GLOBULIN RATIO 1.3 (1.1-1.5); ALKALINE PHOSPHATASE 146 IU/L (46-116); AMYLASE 144 U/L (25-115); ANION GAP 13 (8-16); ASPARTATE AMINO TRANSFERASE 49 U/L (10-37); BILIRUBIN,TOTAL 0.5 MG/DL (0.1-1.0); BLOOD UREA NITROGEN 4 MG/DL (7-18); BUN/CREATININE RATIO 4.7 (5.4-32.0); CALCIUM 8.5 MG/DL (8.5-10.1); CHLORIDE 97 MMOL/L (99-107); CREATININE 0.86 MG/DL (0.60-1.10); GLUCOSE 161 MG/DL (70-104); POTASSIUM 3.2 MMOL/L (3.5-5.1); SODIUM 134 MMOL/L (135-145); TOTAL CARBON DIOXIDE 23.7 MMOL/L (24-32); TOTAL PROTEIN 7.9 G/DL (6.4-8.2); eGFR > 90 ML/MIN
[2019-10-22 16:11] LABS: LIPASE 1829 U/L (73-393)
[2019-10-22 16:54] VITALS: BP 135/100
[2019-10-22] MEDS ORDERED: morphine 4 MG/ML inj SYRINge IM ONE (17:05)
[2019-10-22] MEDS ORDERED: proCHLORperazine 10mg tablet PO ONE (17:05)
[2019-10-22] MEDS ORDERED: OXYC-658 PO (17:08)
[2019-10-22 17:11] LABS: CLARITY,URINE CLEAR (Clear); COLOR,URINE STRAW (Yellow); GLUCOSE, URINE NEGATIVE (Neg); KETONES,URINE NEGATIVE (Neg); LEUKOCYTE ESTERASE ,URINE NEGATIVE (Neg); NITRITES, URINE NEGATIVE (Neg); OCCULT BLOOD,URINE NEGATIVE (Neg); PROTEIN,URINE NEGATIVE (Neg); UROBILINOGEN,URINE 0.2 E.U/dL (0.2-1.0)
[2019-10-22] MEDS ORDERED: PROC-8 PO (17:12)
[2019-10-22 17:14] LABS: UA COLLECTION TYPE CLN CATCH MIDSTREAM
== END 2019-10-22 18:00 | disposition home or self-care (01) ==
LOC: ER 15:16
DX: K85.90 Acute pancreatitis without necrosis or infection, unspecified (principal); F31.9 Bipolar disorder, unspecified; Z72.89 Other problems related to lifestyle; Z59.0 Homelessness; Z88.8 Allergy status to other drugs, medicaments and biological substances; Z79.899 Other long term (current) drug therapy
CPT/HCPCS: 36415; 80053; 81003; 82150; 83690; 85025; 96372; 99283; J2270; Q0164

== ENCOUNTER 2019-11-19 06:50 | Emergency (ER) | payer MEDICAID ==
[~2019-11-19] VITALS: Ht 167.6 cm; Wt 55.7 kg
[~2019-11-19 06:50] MED LIST changes: +PANT20TA18 PO; -PANT20TA3 PO; +PROC-8 PO
[2019-11-19 06:52] VITALS: BP 148/96
== END 2019-11-19 07:55 | disposition home or self-care (01) ==
LOC: ER 06:51
DX: Z00.00 Encounter for general adult medical examination without abnormal findings (principal); F31.9 Bipolar disorder, unspecified; Z72.89 Other problems related to lifestyle; Z59.0 Homelessness; Z88.5 Allergy status to narcotic agent; Z79.899 Other long term (current) drug therapy
CPT/HCPCS: 99281

== ENCOUNTER 2020-03-15 05:59 | Emergency (ER) | payer MEDICAID ==
[~2020-03-15] VITALS: Ht 167.6 cm; Wt 56.8 kg
[~2020-03-15 05:59] MED LIST changes: -OXYC-658 PO
[2020-03-15] MEDS ORDERED: normal saline 1000ml 1,000 ML IV ONE ×3 (06:25→09:55)
[2020-03-15] MEDS ORDERED: diphenhydrAMINE 50 mg/ml inj IV ONE (06:25)
[2020-03-15] MEDS ORDERED: HYDROcodone/acetaminophen 10/325mg tab PO ONE (06:25)
[2020-03-15] MEDS ORDERED: metoclopramide 5 mg/ml inj IV ONE (06:25)
[2020-03-15 06:40] LABS: BASOPHILS # (AUTO) 0.1 X10'3 (0-0.2); BASOPHILS % (AUTO) 0.4 % (0-1); EOSINOPHILS % (AUTO) 0 % (0-6); HEMATOCRIT 45.3 % (42.0-52.0); HEMOGLOBIN 15.6 g/dl (14.0-17.9); LYMPHOCYTES # (AUTO) 1.3 X10'3 (1.1-4.8); LYMPHOCYTES % (AUTO) 8.2 % (21-51); MEAN CORPUSCULAR HEMOGLOBIN 30.2 PG (27.0-31.0); MEAN CORPUSCULAR HGB CONC 34.5 g/dL (33.0-36.5); MEAN CORPUSCULAR VOLUME 87.6 FL (78-98); MEAN PLATELET VOLUME 6.9 FL (7.4-10.4); MONOCYTES # (AUTO) 0.6 X10'3 (0-0.9); MONOCYTES % (AUTO) 3.9 % (2-12); NEUTROPHILS # (AUTO) 13.9 X10'3 (1.8-7.7); NEUTROPHILS % (AUTO) 87.5 % (42-75); PLATELET COUNT 205 X10'3 (140-440); RED BLOOD COUNT 5.17 X10'6 (4.70-6.10); RED CELL DISTRIBUTION WIDTH 13.7 % (11.5-14.5); WHITE BLOOD COUNT 15.8 X10'3 (4.5-11.0)
[2020-03-15 06:41] LABS: CLARITY,URINE SLIGHTLY CLOUDY (Clear); GLUCOSE, URINE NEGATIVE (Neg); KETONES,URINE 15 mg/dl (Neg); LEUKOCYTE ESTERASE ,URINE NEGATIVE (Neg); OCCULT BLOOD,URINE TRACE-INTACT (Neg); PROTEIN,URINE 100 mg/dl (Neg)
[2020-03-15 06:55] LABS: ALANINE AMINOTRANSFERASE 46 U/L (12-78); ALBUMIN 4.4 G/DL (3.4-5.0); ALBUMIN/GLOBULIN RATIO 1.2 (1.1-1.5); ALKALINE PHOSPHATASE 150 IU/L (46-116); ANION GAP 18 (8-16); ASPARTATE AMINO TRANSFERASE 58 U/L (10-37); BLOOD UREA NITROGEN 17 MG/DL (7-18); BUN/CREATININE RATIO 15.3 (5.4-32.0); CALCIUM 8.3 MG/DL (8.5-10.1); CHLORIDE 99 MMOL/L (99-107); CREATININE 1.11 MG/DL (0.60-1.10); GLUCOSE 134 MG/DL (70-104); POTASSIUM 3.3 MMOL/L (3.5-5.1); SODIUM 140 MMOL/L (135-145); TOTAL CARBON DIOXIDE 23.4 MMOL/L (24-32); eGFR 73 ML/MIN
[2020-03-15 06:57] LABS: LIPASE 1783 U/L (73-393)
[2020-03-15 07:32] LABS: COLOR,URINE DARK YELLOW (Yellow); NITRITES, URINE NEGATIVE (Neg); UA COLLECTION TYPE CLN CATCH MIDSTREAM
[2020-03-15 07:34] LABS: AMORPHOUS URATES 2+; BACTERIA,URINE NONE SEEN /HPF (Neg); RBC,URINE NONE SEEN /HPF (0-2); SQUAMOUS EPITHELIAL CELL,UR NONE SEEN /LPF (FEW); WBC,URINE NONE SEEN /HPF (0-4)
[2020-03-15] MEDS ORDERED: HYDR-3965 PO (07:39)
[2020-03-15] MEDS ORDERED: PROM25TA14 PO (07:39)
[2020-03-15] MEDS ORDERED: morphine 10mg/ml inj. IV ONE (07:45)
[2020-03-15] MEDS ORDERED: proCHLORperazine 10 MG/2 ml inj IV ONE (07:45)
--- NOTE | 2020-03-15 08:49 | NUR ---
notified dr reed regarding pt condition,pt hr in btw 110-134 ,face flushed ,temp 99.1,pt denies any withdrawls ,feels motivated to return back to his recovery.as per md she will talk to the pt before d/c.
[2020-03-15] MEDS ORDERED: diazepam 5mg tablet PO ONE (09:15)
[2020-03-15] MEDS ORDERED: thiamine 100mg/ml 2ml inj. IV ONE (09:55)
[2020-03-15] MEDS ORDERED: LORazepam 2 mg/ml vial IV ONE (09:55)
[2020-03-15] MEDS ORDERED: folic acid 1mg tablet PO ONE (10:00)
[2020-03-15] MEDS: dextrose 5%-normal saline 1,000 ML IV SCH ×2 (10:55→11:05)
[2020-03-15 11:24] VITALS: BP 147/90
== END 2020-03-15 12:23 | disposition home or self-care (01) ==
LOC: ER 06:00
DX: K85.90 Acute pancreatitis without necrosis or infection, unspecified (principal); F10.939 Alcohol use, unspecified with withdrawal, unspecified; F17.200 Nicotine dependence, unspecified, uncomplicated; Z59.0 Homelessness; Z85.46 Personal history of malignant neoplasm of prostate; Z88.8 Allergy status to other drugs, medicaments and biological substances; Z79.899 Other long term (current) drug therapy; Y90.9 Presence of alcohol in blood, level not specified
CPT/HCPCS: 36415; 80053; 81001; 83690; 85025; 96361; 96374; 96375; 99285; J0780; J1200; J2060; J2270; J2765; J3411; J7030; J7042; 99284

== ENCOUNTER 2020-03-30 05:11 | Emergency (ER) | payer MEDICAID ==
[~2020-03-30] VITALS: Ht 167.6 cm; Wt 56.8 kg
[~2020-03-30 05:11] MED LIST changes: +HYDR-3965 PO; +PROM25TA14 PO
[2020-03-30] MEDS ORDERED: mag hydrox/Alum hydrox/simeth 30ml oral suspension PO ONE (05:35)
[2020-03-30] MEDS ORDERED: famotidine/PF 10 mg/ml inj IV ONE ×2 (05:35→06:08)
[2020-03-30] MEDS ORDERED: normal saline 1000ml 1,000 ML IV ONE (05:35)
[2020-03-30] MEDS ORDERED: diphenhydrAMINE 25 MG/10 ML UD oral solution PO ONE (05:35)
[2020-03-30] MEDS ORDERED: LIDOcaine Viscous 15ml cup MM ONE (05:35)
[2020-03-30] MEDS ORDERED: FAMO40TA73 PO (06:04)
[2020-03-30] MEDS ORDERED: mag hydrox/Alum hydrox/simeth 30ml oral suspension ONE (06:07)
[2020-03-30] MEDS ORDERED: diphenhydrAMINE 25mg capsule PO ONE ×2 (06:07→06:15)
[2020-03-30] MEDS ORDERED: LIDOcaine Viscous 15ml cup ONE (06:08)
--- NOTE | 2020-03-30 06:09 | NUR ---
CALLED VANDANA FROM PHARMACY WAS UNABLE TO PULL MEDS OUT OF THE OMNI CELL, VANDANA CAME TO FIGURE OUT THE OMNI CELL AND HAD TO PUT OMNI CELL IN OVERRIDE MODE DUE TO THE INABILITY TO FIX AT THIS TIME CN AWARE
[2020-03-30 06:19] LABS: ALANINE AMINOTRANSFERASE 49 U/L (12-78); ALBUMIN 3.9 G/DL (3.4-5.0); ALKALINE PHOSPHATASE 147 IU/L (46-116); ANION GAP 12 (8-16); ASPARTATE AMINO TRANSFERASE 37 U/L (10-37); BILIRUBIN,TOTAL 0.5 MG/DL (0.1-1.0); BLOOD UREA NITROGEN 7 MG/DL (7-18); CALCIUM 9.1 MG/DL (8.5-10.1); CHLORIDE 98 MMOL/L (99-107); CREATININE 0.87 MG/DL (0.60-1.10); GLUCOSE 127 MG/DL (70-104); LIPASE 165 U/L (73-393); POTASSIUM 4.2 MMOL/L (3.5-5.1); SODIUM 136 MMOL/L (135-145); TOTAL CARBON DIOXIDE 26.2 MMOL/L (24-32); TOTAL PROTEIN 7.7 G/DL (6.4-8.2); eGFR > 90 ML/MIN
[2020-03-30 06:23] LABS: BASOPHILS % (AUTO) 0.9 % (0-1); EOSINOPHILS # (AUTO) 0.1 X10'3 (0-0.9); HEMOGLOBIN 13.5 g/dl (14.0-17.9); LYMPHOCYTES # (AUTO) 1.6 X10'3 (1.1-4.8); LYMPHOCYTES % (AUTO) 32.9 % (21-51); MEAN CORPUSCULAR HGB CONC 33.7 g/dL (33.0-36.5); MEAN PLATELET VOLUME 6.5 FL (7.4-10.4); MONOCYTES # (AUTO) 0.6 X10'3 (0-0.9); MONOCYTES % (AUTO) 11.8 % (2-12); NEUTROPHILS # (AUTO) 2.6 X10'3 (1.8-7.7); NEUTROPHILS % (AUTO) 52.4 % (42-75); PLATELET COUNT 457 X10'3 (140-440); RED BLOOD COUNT 4.34 X10'6 (4.70-6.10); RED CELL DISTRIBUTION WIDTH 15.6 % (11.5-14.5)
[2020-03-30] MEDS ORDERED: iohexol 300mg/ml 100ml inj. ONE (06:40)
--- NOTE | 2020-03-30 07:00 | NUR ---
PT TAKEN TO CT.
[2020-03-30 07:34] VITALS: BP 133/96
--- NOTE | 2020-03-30 07:34 | NUR ---
UPDATED MD SCHROEDER PT WAS ABLE TO KEEP DOWN ORAL MEDS WITHOUT N/V BUT PT REPORTS STILL WITH ABD PAIN.
[2020-03-30] MEDS ORDERED: sucralfate 1gm/10ml UD suspension PO SCH (07:40)
[2020-03-30] MEDS ORDERED: morphine 4 MG/ML inj SYRINge IV ONE (08:05)
[2020-03-30] MEDS ORDERED: PROM12.512 PO (08:06)
== END 2020-03-30 08:49 | disposition home or self-care (01) ==
LOC: ER 05:12
DX: K85.90 Acute pancreatitis without necrosis or infection, unspecified (principal); R10.13 Epigastric pain; R19.7 Diarrhea, unspecified; Z85.46 Personal history of malignant neoplasm of prostate; Z59.0 Homelessness; Z72.89 Other problems related to lifestyle; Z88.8 Allergy status to other drugs, medicaments and biological substances; Z79.899 Other long term (current) drug therapy
CPT/HCPCS: 36415; 74177; 80053; 83690; 85025; 96361; 96374; 96375; 99285; J2270; J3490; J7030; Q0163; Q9967

== ENCOUNTER 2020-05-31 12:36 | Emergency (ER) | payer MEDICAID ==
[~2020-05-31] VITALS: Ht 167.6 cm; Wt 60.0 kg
[~2020-05-31 12:36] MED LIST changes: +FAMO40TA73 PO; -HYDR-3965 PO; +PANT20TA2 PO; +PROM12.512 PO; -PROM25TA14 PO
[2020-05-31 13:45] LABS: BASOPHILS % (AUTO) 0.2 % (0-1); EOSINOPHILS % (AUTO) 0 % (0-6); HEMATOCRIT 44.9 % (42.0-52.0); HEMOGLOBIN 15.1 g/dl (14.0-17.9); LYMPHOCYTES # (AUTO) 1.3 X10'3 (1.1-4.8); LYMPHOCYTES % (AUTO) 6.4 % (21-51); MEAN CORPUSCULAR HEMOGLOBIN 29.6 PG (27.0-31.0); MEAN CORPUSCULAR HGB CONC 33.7 g/dL (33.0-36.5); MEAN PLATELET VOLUME 7.2 FL (7.4-10.4); MONOCYTES # (AUTO) 0.9 X10'3 (0-0.9); MONOCYTES % (AUTO) 4.7 % (2-12); NEUTROPHILS # (AUTO) 17.4 X10'3 (1.8-7.7); NEUTROPHILS % (AUTO) 88.7 % (42-75); PLATELET COUNT 244 X10'3 (140-440); RED BLOOD COUNT 5.09 X10'6 (4.70-6.10); RED CELL DISTRIBUTION WIDTH 14.7 % (11.5-14.5); WHITE BLOOD COUNT 19.6 X10'3 (4.5-11.0)
[2020-05-31 13:50] LABS: ALANINE AMINOTRANSFERASE 28 U/L (12-78); ALBUMIN 4.6 G/DL (3.4-5.0); ALBUMIN/GLOBULIN RATIO 1.3 (1.1-1.5); ALKALINE PHOSPHATASE 158 IU/L (46-116); AMYLASE 137 U/L (25-115); ANION GAP 17 (8-16); ASPARTATE AMINO TRANSFERASE 37 U/L (10-37); BILIRUBIN,TOTAL 1.1 MG/DL (0.1-1.0); BLOOD UREA NITROGEN 18 MG/DL (7-18); BUN/CREATININE RATIO 18.9 (5.4-32.0); CALCIUM 8.8 MG/DL (8.5-10.1); CHLORIDE 98 MMOL/L (99-107); CREATININE 0.95 MG/DL (0.60-1.10); GLUCOSE 147 MG/DL (70-104); LIPASE 769 U/L (73-393); POTASSIUM 3.2 MMOL/L (3.5-5.1); SODIUM 142 MMOL/L (135-145); TOTAL CARBON DIOXIDE 27.2 MMOL/L (24-32); TOTAL PROTEIN 8.2 G/DL (6.4-8.2); eGFR 87 ML/MIN
[2020-05-31] MEDS ORDERED: ondansetron/PF 4mg/2ml inj IV ONE (18:10)
[2020-05-31] MEDS ORDERED: normal saline 1000ML IV soln IVB ONE (18:10)
[2020-05-31] MEDS ORDERED: pantoprazole 40 MG vial IV ONE (18:10)
--- NOTE | 2020-05-31 18:43 | NUR ---
NO NOTED ALLERGIC REACTION AFTER ADMINISTERING ZOFRAN 4MG PIV.CALL LIGHT WITHIN REACH.
--- NOTE | 2020-05-31 19:07 | NUR ---
PT STATES HE STILL HAS PAIN, HIS RIDE IS NOT AVAILABLE UNTIL AFTER 2200, INFORMED PT HE WILL NOT BE RECEIVING ANY NARCOTICS R/T NO RIDE AVAILABLE. AWARE. ENCOURAGED PT TO DRINK 1 OUNCE OF WATER. NO MORE. HE WILL TRY. HE HAS NO NUASEA AND NO PROBLEMS WITH THE ZOFRAN.
[2020-05-31 19:51] VITALS: BP 129/84
[2020-05-31] MEDS ORDERED: ONDA8TAB13 PO (20:02)
== END 2020-05-31 20:15 | disposition home or self-care (01) ==
LOC: ER 12:36
DX: K86.1 Other chronic pancreatitis (principal); R11.10 Vomiting, unspecified; Z59.0 Homelessness; Z79.899 Other long term (current) drug therapy; Z88.8 Allergy status to other drugs, medicaments and biological substances
CPT/HCPCS: 36415; 80053; 82150; 83690; 85025; 96361; 96374; 96375; 99284; C9113; J2405; J7030

== ENCOUNTER 2020-06-27 03:42 | Emergency (ER) | payer MEDICAID ==
[~2020-06-27] VITALS: Ht 167.6 cm; Wt 59.0 kg
[~2020-06-27 03:42] MED LIST changes: +ONDA8TAB13 PO
[2020-06-27] MEDS ORDERED: diazepam 5mg tablet PO ONE (03:55)
[2020-06-27] MEDS ORDERED: normal saline 1000ml 1,000 ML IV ONE (03:55)
[2020-06-27] MEDS ORDERED: mag hydrox/Alum hydrox/simeth 30ml oral suspension PO ONE (03:55)
[2020-06-27] MEDS ORDERED: LIDOcaine Viscous 15ml cup MM ONE (03:55)
[2020-06-27 04:43] LABS: BASOPHILS % (AUTO) 0.6 % (0-1); EOSINOPHILS % (AUTO) 0.2 % (0-6); HEMATOCRIT 39.9 % (42.0-52.0); HEMOGLOBIN 13.7 g/dl (14.0-17.9); LYMPHOCYTES # (AUTO) 2.4 X10'3 (1.1-4.8); LYMPHOCYTES % (AUTO) 33.5 % (21-51); MEAN CORPUSCULAR HEMOGLOBIN 30.5 PG (27.0-31.0); MEAN CORPUSCULAR HGB CONC 34.5 g/dL (33.0-36.5); MEAN CORPUSCULAR VOLUME 88.4 FL (78-98); MONOCYTES # (AUTO) 0.7 X10'3 (0-0.9); MONOCYTES % (AUTO) 9.3 % (2-12); NEUTROPHILS % (AUTO) 56.4 % (42-75); PLATELET COUNT 271 X10'3 (140-440); RED BLOOD COUNT 4.51 X10'6 (4.70-6.10); WHITE BLOOD COUNT 7.1 X10'3 (4.5-11.0)
[2020-06-27 05:00] LABS: ALANINE AMINOTRANSFERASE 33 U/L (12-78); ALBUMIN/GLOBULIN RATIO 1.1 (1.1-1.5); ALKALINE PHOSPHATASE 120 IU/L (46-116); ANION GAP 11 (8-16); ASPARTATE AMINO TRANSFERASE 30 U/L (10-37); BILIRUBIN,TOTAL 0.9 MG/DL (0.1-1.0); BLOOD UREA NITROGEN 6 MG/DL (7-18); BUN/CREATININE RATIO 6.1 (5.4-32.0); CALCIUM 8.8 MG/DL (8.5-10.1); CHLORIDE 100 MMOL/L (99-107); CREATININE 0.99 MG/DL (0.60-1.10); GLUCOSE 104 MG/DL (70-104); LIPASE 230 U/L (73-393); POTASSIUM 3.5 MMOL/L (3.5-5.1); SODIUM 139 MMOL/L (135-145); TOTAL CARBON DIOXIDE 28.2 MMOL/L (24-32); TOTAL PROTEIN 7.5 G/DL (6.4-8.2); eGFR 83 ML/MIN
[2020-06-27 05:17] VITALS: BP 136/90
== END 2020-06-27 05:19 | disposition home or self-care (01) ==
LOC: ER 03:43
DX: R07.0 Pain in throat (principal); F10.139 Alcohol abuse with withdrawal, unspecified; R11.2 Nausea with vomiting, unspecified; R10.84 Generalized abdominal pain; F31.9 Bipolar disorder, unspecified; Z59.0 Homelessness; Z79.899 Other long term (current) drug therapy; Y90.0 Blood alcohol level of less than 20 mg/100 ml
CPT/HCPCS: 36415; 80053; 83690; 85025; 96360; 99283; J7030

== ENCOUNTER 2020-07-23 16:21 | Inpatient (IN) | payer MEDICAID ==
[~2020-07-23] VITALS: Ht 167.6 cm; Wt 61.4 kg
[2020-07-23 18:28] LABS: BASOPHILS # (AUTO) 0.1 X10'3 (0-0.2); BASOPHILS % (AUTO) 0.5 % (0-1); EOSINOPHILS % (AUTO) 0.1 % (0-6); HEMATOCRIT 38.6 % (42.0-52.0); HEMOGLOBIN 12.5 g/dl (14.0-17.9); LYMPHOCYTES # (AUTO) 0.7 X10'3 (1.1-4.8); LYMPHOCYTES % (AUTO) 6.3 % (21-51); MEAN CORPUSCULAR HEMOGLOBIN 30.7 PG (27.0-31.0); MEAN CORPUSCULAR HGB CONC 32.5 g/dL (33.0-36.5); MEAN CORPUSCULAR VOLUME 94.5 FL (78-98); MEAN PLATELET VOLUME 6.4 FL (7.4-10.4); MONOCYTES # (AUTO) 0.4 X10'3 (0-0.9); MONOCYTES % (AUTO) 4.1 % (2-12); NEUTROPHILS # (AUTO) 9.8 X10'3 (1.8-7.7); PLATELET COUNT 405 X10'3 (140-440); RED BLOOD COUNT 4.08 X10'6 (4.70-6.10); RED CELL DISTRIBUTION WIDTH 18.2 % (11.5-14.5)
[2020-07-23 18:36] LABS: ALANINE AMINOTRANSFERASE 50 U/L (12-78); ALBUMIN 4.5 G/DL (3.4-5.0); ALKALINE PHOSPHATASE 132 IU/L (46-116); ANION GAP 28 (8-16); ASPARTATE AMINO TRANSFERASE 56 U/L (10-37); BILIRUBIN,TOTAL 0.5 MG/DL (0.1-1.0); BLOOD UREA NITROGEN 13 MG/DL (7-18); BUN/CREATININE RATIO 10.7 (5.4-32.0); CALCIUM 8.9 MG/DL (8.5-10.1); CHLORIDE 93 MMOL/L (99-107); CREATININE 1.22 MG/DL (0.60-1.10); GLUCOSE 77 MG/DL (70-104); LIPASE 1198 U/L (73-393); POTASSIUM 5.2 MMOL/L (3.5-5.1); SODIUM 136 MMOL/L (135-145); TOTAL PROTEIN 8.8 G/DL (6.4-8.2); eGFR 65 ML/MIN
[2020-07-23 18:41] LABS: TOTAL CARBON DIOXIDE 14.8 MMOL/L (24-32)
[2020-07-23] MEDS ORDERED: normal saline 1000ml 1,000 ML IV ONE (19:50)
[2020-07-23] MEDS ORDERED: morphine 4 MG/ML inj SYRINge IV ONE (19:55)
[2020-07-23] MEDS ORDERED: LORazepam 2 mg/ml vial IV ONE (19:55)
[2020-07-23] MEDS: dextrose 5%-normal saline 1,000 ML IV SCH ×2 (20:07→20:50)
[2020-07-23 20:09] LABS: ETHANOL 0.296 GM/DL (0.0-0.010)
[2020-07-23] MEDS ORDERED: normal saline 1000ml 1,000 ML IV SCH (20:55)
[2020-07-23] MEDS ORDERED: potassium Cl 40MEQ/1/2NS 520ml 520 ML IV PRN (20:55)
[2020-07-23] MEDS ORDERED: pantoprazole 40 MG vial IV ONE (20:55)
[2020-07-23] MEDS ORDERED: thiamine inj. 100 MG in normal saline 100ml IV soln 100 ML IV ONE (21:00)
[2020-07-23] MEDS: HYDROmorphone inj. 0.5 MG/0.5 ML DISP.SYRIN IV PRN (21:26)
--- NOTE | 2020-07-23 21:40 | NUR ---
Patint report was received from "SONIA" RN. Patient arrived to unit at 2140 in [facility] and walked to bed from [facility]. Patient arrived with cell phone, wallet, and clothes and shoes.
[2020-07-23 22:00] VITALS: BP 113/74
[2020-07-23] MEDS ORDERED: morphine 2 MG/ML inj. syringe IV PRN (22:10)
[2020-07-23 22:58] LABS: CLARITY,URINE CLEAR (Clear); COLOR,URINE YELLOW (Yellow); GLUCOSE, URINE 500 mg/dl (Neg); KETONES,URINE >=80 mg/dl (Neg); LEUKOCYTE ESTERASE ,URINE NEGATIVE (Neg); NITRITES, URINE NEGATIVE (Neg); OCCULT BLOOD,URINE NEGATIVE (Neg); PH,URINE 5.5 (4.8-8.0); PROTEIN,URINE 30 mg/dl (Neg); UROBILINOGEN,URINE 0.2 E.U/dL (0.2-1.0)
[2020-07-23 23:05] LABS: UA COLLECTION TYPE NON-SPECIFIED
[2020-07-23 23:06] LABS: BACTERIA,URINE FEW /HPF (Neg); RBC,URINE 0-2 /HPF (0-2); SQUAMOUS EPITHELIAL CELL,UR FEW /LPF (FEW); WBC,URINE NONE SEEN /HPF (0-4)
[2020-07-23] MEDS: LORazepam 2 mg/ml vial IV PRN (23:25)
[2020-07-24] MEDS ORDERED: PANT40TA54 PO (03:19)
[2020-07-24] MEDS ORDERED: LURA80TA3 PO (03:19)
[2020-07-24] MEDS ORDERED: CLON-369 PO (03:19)
[2020-07-24 06:58] LABS: BASOPHILS % (AUTO) 0.4 % (0-1); EOSINOPHILS % (AUTO) 0.4 % (0-6); HEMATOCRIT 30.1 % (42.0-52.0); HEMOGLOBIN 10.3 g/dl (14.0-17.9); LYMPHOCYTES # (AUTO) 0.7 X10'3 (1.1-4.8); LYMPHOCYTES % (AUTO) 8.6 % (21-51); MEAN CORPUSCULAR HEMOGLOBIN 31.8 PG (27.0-31.0); MEAN CORPUSCULAR HGB CONC 34.1 g/dL (33.0-36.5); MEAN CORPUSCULAR VOLUME 93.4 FL (78-98); MEAN PLATELET VOLUME 6.3 FL (7.4-10.4); MONOCYTES # (AUTO) 0.5 X10'3 (0-0.9); MONOCYTES % (AUTO) 6.6 % (2-12); PLATELET COUNT 273 X10'3 (140-440); RED BLOOD COUNT 3.22 X10'6 (4.70-6.10); RED CELL DISTRIBUTION WIDTH 18.6 % (11.5-14.5); WHITE BLOOD COUNT 8.3 X10'3 (4.5-11.0)
[2020-07-24 07:22] LABS: ALANINE AMINOTRANSFERASE 38 U/L (12-78); ALBUMIN 3.2 G/DL (3.4-5.0); ALKALINE PHOSPHATASE 93 IU/L (46-116); ANION GAP 15 (8-16); ASPARTATE AMINO TRANSFERASE 39 U/L (10-37); BILIRUBIN,TOTAL 0.7 MG/DL (0.1-1.0); BLOOD UREA NITROGEN 9 MG/DL (7-18); BUN/CREATININE RATIO 11.5 (5.4-32.0); CALCIUM 7.6 MG/DL (8.5-10.1); CHLORIDE 104 MMOL/L (99-107); CREATININE 0.78 MG/DL (0.60-1.10); GLUCOSE 79 MG/DL (70-104); POTASSIUM 4.2 MMOL/L (3.5-5.1); SODIUM 141 MMOL/L (135-145); TOTAL CARBON DIOXIDE 22.5 MMOL/L (24-32); TOTAL PROTEIN 6.3 G/DL (6.4-8.2); eGFR > 90 ML/MIN
--- NOTE | 2020-07-24 07:57 | NUR ---
PAGER ID: [phone] MESSAGE: Bola Briggs 350B Pt. is ETOH and not on protocol. Check accucheck this AM CRITICAL 58. Did you want to put some dextrose in IV fluids since pt. NPO?? Pt. should also have protonix for bleeding ulcers? Shy [id number]
[2020-07-24 08:00] VITALS: BP 129/83
[2020-07-24] MEDS: K and/or MAG REPLACEMENT MC SCH ×2 (08:00→20:00)
[2020-07-24] MEDS: dextrose 5%-water 1,000 ML IV SCH ×3 (08:10→20:29)
[2020-07-24] MEDS: thiamine 100mg tablet PO SCH (08:11)
[2020-07-24] MEDS: ondansetron/PF 4mg/2ml inj IV PRN ×2 (08:14→15:25)
[2020-07-24] MEDS: HYDROmorphone inj. 0.5 MG/0.5 ML DISP.SYRIN IV PRN ×3 (08:25→20:31)
--- NOTE | 2020-07-24 11:11 | NUR ---
Spoke with Hospitalist and she states "pt. looks stable" with D5W, no accuchecks needed.
[2020-07-24 11:30] VITALS: BP 133/85
[2020-07-24] MEDS ORDERED: lurasidone 20mg tablet PO SCH (15:31)
--- NOTE | 2020-07-24 15:49 | NUR ---
REQUESTED PT. TO HAVE SOMEONE BRING IN [facility] BUT PT. STATES [facility]
[2020-07-24 18:00] VITALS: BP 152/87
--- NOTE | 2020-07-24 18:31 | NUR ---
Problems reprioritized. Patient report given, questions answered & plan of care reviewed with Ronak JEAN-BAPTISTE and Anabel GONCALVESN.
[2020-07-24 19:00] VITALS: BP 125/87
--- NOTE | 2020-07-24 19:11 | NUR ---
Patient in room AL 350. I have received report from Shy JEAN-BAPTISTE and had the opportunity to ask questions and assume patient care.
--- NOTE | 2020-07-24 19:29 | NUR ---
I have received report from ESTIVEN Begum and had the opportunity to ask questions and assume patient care.
[2020-07-24] MEDS: LORazepam 2 mg/ml vial IV PRN (20:46)
[2020-07-25 00:09] VITALS: BP 116/85
[2020-07-25] MEDS: HYDROmorphone inj. 0.5 MG/0.5 ML DISP.SYRIN IV PRN ×4 (01:15→22:22)
[2020-07-25] MEDS: ondansetron/PF 4mg/2ml inj IV PRN ×2 (01:15→11:57)
[2020-07-25] MEDS: LORazepam 2 mg/ml vial IV PRN ×3 (01:15→18:41)
[2020-07-25 05:53] LABS: BASOPHILS % (AUTO) 0.7 % (0-1); EOSINOPHILS # (AUTO) 0.2 X10'3 (0-0.9); EOSINOPHILS % (AUTO) 2.8 % (0-6); HEMATOCRIT 28.9 % (42.0-52.0); HEMOGLOBIN 9.9 g/dl (14.0-17.9); LYMPHOCYTES # (AUTO) 1.1 X10'3 (1.1-4.8); LYMPHOCYTES % (AUTO) 19.5 % (21-51); MEAN CORPUSCULAR HEMOGLOBIN 31.6 PG (27.0-31.0); MEAN CORPUSCULAR HGB CONC 34.1 g/dL (33.0-36.5); MEAN CORPUSCULAR VOLUME 92.4 FL (78-98); MEAN PLATELET VOLUME 6.6 FL (7.4-10.4); MONOCYTES # (AUTO) 0.4 X10'3 (0-0.9); MONOCYTES % (AUTO) 6.5 % (2-12); NEUTROPHILS % (AUTO) 70.5 % (42-75); PLATELET COUNT 218 X10'3 (140-440); RED BLOOD COUNT 3.12 X10'6 (4.70-6.10); RED CELL DISTRIBUTION WIDTH 18.7 % (11.5-14.5); WHITE BLOOD COUNT 5.7 X10'3 (4.5-11.0)
[2020-07-25 06:01] LABS: ALANINE AMINOTRANSFERASE 34 U/L (12-78); ALBUMIN 2.9 G/DL (3.4-5.0); ALKALINE PHOSPHATASE 87 IU/L (46-116); ANION GAP 8 (8-16); ASPARTATE AMINO TRANSFERASE 37 U/L (10-37); BILIRUBIN,TOTAL 0.9 MG/DL (0.1-1.0); BLOOD UREA NITROGEN 6 MG/DL (7-18); BUN/CREATININE RATIO 9.5 (5.4-32.0); CALCIUM 8.2 MG/DL (8.5-10.1); CHLORIDE 97 MMOL/L (99-107); CREATININE 0.63 MG/DL (0.60-1.10); GLUCOSE 114 MG/DL (70-104); SODIUM 132 MMOL/L (135-145); TOTAL CARBON DIOXIDE 27.1 MMOL/L (24-32); TOTAL PROTEIN 5.9 G/DL (6.4-8.2); eGFR > 90 ML/MIN
[2020-07-25 06:05] LABS: POTASSIUM 2.9 MMOL/L (3.5-5.1)
--- NOTE | 2020-07-25 06:33 | NUR ---
Problems reprioritized. Patient report given, questions answered & plan of care reviewed with Garett RN.
--- NOTE | 2020-07-25 06:33 | NUR ---
I agree with ESTIVEN Schmidtfire alarm installer, assessments, and Report given to Garett RN
--- NOTE | 2020-07-25 06:41 | NUR ---
Patient in room AL 350. I have received report from Ronak/Anabel JEAN-BAPTISTE and had the opportunity to ask questions and assume patient care.
[2020-07-25] MEDS: K and/or MAG REPLACEMENT MC SCH ×2 (08:00→20:00)
[2020-07-25] MEDS: LURASIDONE 80 MG PO SCH (08:00)
[2020-07-25 08:49] LABS: LIPASE 1184 U/L (73-393)
[2020-07-25] MEDS: pantoprazole 40 MG vial IV SCH (08:53)
[2020-07-25] MEDS: thiamine 100mg tablet PO SCH (08:54)
--- NOTE | 2020-07-25 10:15 | NUR ---
Malnutrition consult: Pt reports 2-13 lb wt loss with decreased appetite per malnutrition risk screen with RN. Current documented wt is stable with documented wt hx in EMR. Pt currently NPO. No documented significant decrease in muscle strength or edema. Pt appears well developed well nourished per ED report. Pt currently lacks a minimum of two criteria for malnutrition. Will continue to follow. Addendum: 07/25/20 at [address] Amended: Links added.
[2020-07-25 10:52] VITALS: BP 112/76
[2020-07-25 13:25] VITALS: BP 111/82
[2020-07-25] MEDS: dextrose 5%-water 1,000 ML IV SCH (14:05)
[2020-07-25] MEDS: potassium Cl 40MEQ/1/2NS 520ml 520 ML IV PRN ×2 (14:58→22:50)
--- NOTE | 2020-07-25 18:08 | NUR ---
Problems reprioritized. Patient report given, questions answered & plan of care reviewed with Andrey JEAN-BAPTISTE.
[2020-07-25 19:00] VITALS: BP 139/89
[2020-07-25] MEDS ORDERED: LORazepam 1 MG tablet PO PRN (21:00)
[2020-07-25] MEDS ORDERED: LORazepam 2 mg/ml vial IV PRN (21:00)
[2020-07-26] VITALS: BP 118/90
[2020-07-26] MEDS: dextrose 5%-water 1,000 ML IV SCH ×3 (00:30→20:56)
[2020-07-26] MEDS: HYDROmorphone inj. 0.5 MG/0.5 ML DISP.SYRIN IV PRN ×8 (00:36→22:53)
[2020-07-26] MEDS: ondansetron/PF 4mg/2ml inj IV PRN ×2 (05:46→13:18)
--- NOTE | 2020-07-26 06:26 | NUR ---
Problems reprioritized. Patient report given, questions answered & plan of care reviewed with VERENA. Addendum: 07/26/20 at 06 by Myke Altman RN Amended: Links added.
[2020-07-26 06:39] LABS: BASOPHILS % (AUTO) 0.6 % (0-1); EOSINOPHILS # (AUTO) 0.1 X10'3 (0-0.9); EOSINOPHILS % (AUTO) 2.9 % (0-6); HEMOGLOBIN 10.1 g/dl (14.0-17.9); LYMPHOCYTES % (AUTO) 19.6 % (21-51); MEAN CORPUSCULAR HEMOGLOBIN 31.3 PG (27.0-31.0); MEAN CORPUSCULAR HGB CONC 33.7 g/dL (33.0-36.5); MEAN CORPUSCULAR VOLUME 92.8 FL (78-98); MONOCYTES # (AUTO) 0.4 X10'3 (0-0.9); MONOCYTES % (AUTO) 8.3 % (2-12); NEUTROPHILS # (AUTO) 3.4 X10'3 (1.8-7.7); NEUTROPHILS % (AUTO) 68.6 % (42-75); PLATELET COUNT 200 X10'3 (140-440); RED BLOOD COUNT 3.24 X10'6 (4.70-6.10); RED CELL DISTRIBUTION WIDTH 18.8 % (11.5-14.5); WHITE BLOOD COUNT 4.9 X10'3 (4.5-11.0)
[2020-07-26 06:55] LABS: ALANINE AMINOTRANSFERASE 35 U/L (12-78); ALBUMIN/GLOBULIN RATIO 0.9 (1.1-1.5); ALKALINE PHOSPHATASE 91 IU/L (46-116); ANION GAP 6 (8-16); ASPARTATE AMINO TRANSFERASE 35 U/L (10-37); BILIRUBIN,TOTAL 0.5 MG/DL (0.1-1.0); BLOOD UREA NITROGEN 3 MG/DL (7-18); BUN/CREATININE RATIO 3.9 (5.4-32.0); CALCIUM 8.7 MG/DL (8.5-10.1); CHLORIDE 96 MMOL/L (99-107); CREATININE 0.76 MG/DL (0.60-1.10); GLUCOSE 151 MG/DL (70-104); POTASSIUM 3.1 MMOL/L (3.5-5.1); SODIUM 131 MMOL/L (135-145); TOTAL CARBON DIOXIDE 28.6 MMOL/L (24-32); TOTAL PROTEIN 6.4 G/DL (6.4-8.2); eGFR > 90 ML/MIN
[2020-07-26 07:30] VITALS: BP 109/80
[2020-07-26] MEDS: LURASIDONE 80 MG PO SCH (08:00)
[2020-07-26] MEDS: K and/or MAG REPLACEMENT MC SCH ×2 (08:00→20:51)
[2020-07-26] MEDS: pantoprazole 40 MG vial IV SCH (08:26)
[2020-07-26] MEDS: thiamine 100mg tablet PO SCH (08:26)
[2020-07-26 10:21] LABS: LIPASE 868 U/L (73-393)
[2020-07-26 11:00] VITALS: BP 121/68
--- NOTE | 2020-07-26 12:10 | NUR ---
Paged Dr. [place] PAGER ID: [phone] MESSAGE: surgical Justyn RN ext [phone]. RE: Bola Briggs. K today 3.1, there is replacement order but only IV KCL, can we have PO KCL replacement per protocol order?
[2020-07-26] MEDS ORDERED: potassium Cl 20 mEq SR tablet PO PRN (13:30)
[2020-07-26] MEDS: potassium Cl 20 mEq SR tablet PO PRN ×2 (14:08→20:54)
--- NOTE | 2020-07-26 18:24 | NUR ---
Problems reprioritized. Patient report given, questions answered & plan of care reviewed with Andrey JEAN-BAPTISTE.
[2020-07-26 18:40] VITALS: BP 103/75
[2020-07-27] VITALS: BP 117/78
[2020-07-27] MEDS: HYDROmorphone inj. 0.5 MG/0.5 ML DISP.SYRIN IV PRN ×6 (02:10→19:16)
[2020-07-27] MEDS: potassium Cl 20 mEq SR tablet PO PRN (04:15)
[2020-07-27] MEDS: dextrose 5%-water 1,000 ML IV SCH (05:14)
--- NOTE | 2020-07-27 06:07 | NUR ---
Patient in room AL 350. I have received report from Andrey JEAN-BAPTISTE and had the opportunity to ask questions and assume patient care.
[2020-07-27 06:29] LABS: BASOPHILS % (AUTO) 0.4 % (0-1); EOSINOPHILS # (AUTO) 0.1 X10'3 (0-0.9); EOSINOPHILS % (AUTO) 2.8 % (0-6); HEMATOCRIT 31.4 % (42.0-52.0); HEMOGLOBIN 10.7 g/dl (14.0-17.9); MEAN CORPUSCULAR HEMOGLOBIN 31.7 PG (27.0-31.0); MEAN CORPUSCULAR HGB CONC 34.1 g/dL (33.0-36.5); MEAN CORPUSCULAR VOLUME 93.1 FL (78-98); MONOCYTES # (AUTO) 0.5 X10'3 (0-0.9); MONOCYTES % (AUTO) 12.9 % (2-12); NEUTROPHILS # (AUTO) 2.3 X10'3 (1.8-7.7); NEUTROPHILS % (AUTO) 57.9 % (42-75); PLATELET COUNT 206 X10'3 (140-440); RED BLOOD COUNT 3.37 X10'6 (4.70-6.10)
--- NOTE | 2020-07-27 06:30 | NUR ---
Problems reprioritized. Patient report given, questions answered & plan of care reviewed with VERENA. Addendum: 07/27/20 at 0630 by Myke Altman RN Amended: Links added.
[2020-07-27 07:00] VITALS: BP 113/81
[2020-07-27 07:04] LABS: ALANINE AMINOTRANSFERASE 44 U/L (12-78); ALBUMIN 3.3 G/DL (3.4-5.0); ALBUMIN/GLOBULIN RATIO 0.9 (1.1-1.5); ALKALINE PHOSPHATASE 101 IU/L (46-116); ANION GAP 7 (8-16); ASPARTATE AMINO TRANSFERASE 34 U/L (10-37); BILIRUBIN,TOTAL 0.4 MG/DL (0.1-1.0); BLOOD UREA NITROGEN 1 MG/DL (7-18); BUN/CREATININE RATIO 1.5 (5.4-32.0); CALCIUM 9.4 MG/DL (8.5-10.1); CHLORIDE 97 MMOL/L (99-107); CREATININE 0.67 MG/DL (0.60-1.10); GLUCOSE 108 MG/DL (70-104); LIPASE 466 U/L (73-393); POTASSIUM 3.8 MMOL/L (3.5-5.1); SODIUM 132 MMOL/L (135-145); TOTAL CARBON DIOXIDE 28.4 MMOL/L (24-32); TOTAL PROTEIN 6.8 G/DL (6.4-8.2); eGFR > 90 ML/MIN
[2020-07-27] MEDS: pantoprazole 40 MG vial IV SCH (07:46)
[2020-07-27] MEDS: thiamine 100mg tablet PO SCH (07:46)
[2020-07-27 07:48] LABS: ANISOCYTOSIS 2+; PLATELET ESTIMATE NORMAL
[2020-07-27] MEDS: LURASIDONE 80 MG PO SCH (08:00)
[2020-07-27] MEDS: K and/or MAG REPLACEMENT MC SCH ×2 (08:00→20:00)
--- NOTE | 2020-07-27 08:50 | NUR ---
Paged Rubén PAGER ID: [phone] MESSAGE: Surgical Justyn JEAN-BAPTISTE ext [phone]. RE: Bola Briggs. Lipase 466 today down from 868 yesterday. Patient asking if we can advance the clear liquid diet.
[2020-07-27] MEDS: ondansetron/PF 4mg/2ml inj IV PRN ×2 (09:39→19:15)
[2020-07-27 11:00] VITALS: BP 109/80
--- NOTE | 2020-07-27 13:43 | NUR ---
Paged Dr. [place] PAGER ID: [phone] MESSAGE: Surgical Justyn RN ext [phone]. Bola Briggs. Patient vomited 200ml of undigested food after eating his lunch on mechanical soft diet. Also he said his abdomen hurts after he ate.
[2020-07-27] MEDS: lurasidone 20mg tablet PO SCH (16:45)
[2020-07-27] MEDS: lurasidone 60mg tablet PO SCH (16:47)
--- NOTE | 2020-07-27 18:20 | NUR ---
Problems reprioritized. Patient report given, questions answered & plan of care reviewed with Andrey JEAN-BAPTISTE.
[2020-07-27 18:40] VITALS: BP 118/86
[2020-07-27] MEDS ORDERED: LORazepam 2 mg/ml vial IV PRN (21:00)
[2020-07-27] MEDS ORDERED: LORazepam 1 MG tablet PO PRN (21:00)
--- NOTE | 2020-07-28 06:49 | NUR ---
Problems reprioritized. Patient report given, questions answered & plan of care reviewed with TRENT. Addendum: 07/28/20 at 0649 by Myke Altman RN Amended: Links added.
--- NOTE | 2020-07-28 06:58 | NUR ---
Patient in room AL 350. I have received report from Andrey JEAN-BAPTISTE and had the opportunity to ask questions and assume patient care.
[2020-07-28 07:01] LABS: BASOPHILS % (AUTO) 0.3 % (0-1); EOSINOPHILS # (AUTO) 0.1 X10'3 (0-0.9); HEMATOCRIT 35.6 % (42.0-52.0); HEMOGLOBIN 12.1 g/dl (14.0-17.9); LYMPHOCYTES # (AUTO) 1.2 X10'3 (1.1-4.8); LYMPHOCYTES % (AUTO) 16.4 % (21-51); MEAN CORPUSCULAR HEMOGLOBIN 31.5 PG (27.0-31.0); MEAN CORPUSCULAR HGB CONC 33.8 g/dL (33.0-36.5); MEAN CORPUSCULAR VOLUME 93.2 FL (78-98); MEAN PLATELET VOLUME 6.9 FL (7.4-10.4); MONOCYTES # (AUTO) 0.8 X10'3 (0-0.9); MONOCYTES % (AUTO) 10.9 % (2-12); NEUTROPHILS # (AUTO) 5.4 X10'3 (1.8-7.7); NEUTROPHILS % (AUTO) 71.4 % (42-75); PLATELET COUNT 233 X10'3 (140-440); RED BLOOD COUNT 3.83 X10'6 (4.70-6.10); RED CELL DISTRIBUTION WIDTH 18.9 % (11.5-14.5); WHITE BLOOD COUNT 7.6 X10'3 (4.5-11.0)
[2020-07-28 07:34] LABS: ALANINE AMINOTRANSFERASE 42 U/L (12-78); ALBUMIN 3.5 G/DL (3.4-5.0); ALBUMIN/GLOBULIN RATIO 0.9 (1.1-1.5); ALKALINE PHOSPHATASE 110 IU/L (46-116); ANION GAP 11 (8-16); ASPARTATE AMINO TRANSFERASE 43 U/L (10-37); BILIRUBIN,TOTAL 0.5 MG/DL (0.1-1.0); BLOOD UREA NITROGEN 2 MG/DL (7-18); BUN/CREATININE RATIO 2.6 (5.4-32.0); CALCIUM 9.5 MG/DL (8.5-10.1); CHLORIDE 98 MMOL/L (99-107); CREATININE 0.77 MG/DL (0.60-1.10); GLUCOSE 100 MG/DL (70-104); LIPASE 206 U/L (73-393); SODIUM 136 MMOL/L (135-145); TOTAL CARBON DIOXIDE 27.2 MMOL/L (24-32); TOTAL PROTEIN 7.3 G/DL (6.4-8.2); eGFR > 90 ML/MIN
[2020-07-28 08:00] VITALS: BP 109/71
[2020-07-28] MEDS: K and/or MAG REPLACEMENT MC SCH (08:00)
[2020-07-28] MEDS: lurasidone 60mg tablet PO SCH (08:00)
[2020-07-28] MEDS: lurasidone 20mg tablet PO SCH (08:00)
[2020-07-28] MEDS: thiamine 100mg tablet PO SCH (08:33)
[2020-07-28] MEDS: pantoprazole 40 MG vial IV SCH (08:33)
[2020-07-28] MEDS: HYDROmorphone inj. 0.5 MG/0.5 ML DISP.SYRIN IV PRN ×2 (08:34→12:14)
[2020-07-28 11:00] VITALS: BP 119/84
--- NOTE | 2020-07-28 11:48 | NUR ---
Initial: Pt presented with c/o N/V and admitted for pancreatitis. Pt initially on a clear liquid diet which was advanced to mechanical soft low fat 07/27. Diet was digressed back to clear liquids as pt with c/o nausea following PO intake. Pt now on full liquid diet and documented with average 75-100% PO intake throughout LOS. Lipase WNL today. Recommend advancing to low fat diet as medically indicated. LBM 6/7 per I&O. Will continue to follow closely and make recommendations as appropriate. Recommendations: 1) Advance to low fat diet as medically indicated 2) Monitor need for ONS 3) Continue routine Thiamine for EtOH hx 4) Routine bowel care 5) Scaled weight this admit; weekly scaled weights thereafter Addendum: 07/28/20 at [address] Amended: Links added.
[2020-07-28] MEDS ORDERED: ONDA4TAB12 PO (13:34)
--- NOTE | 2020-07-28 15:35 | NUR ---
[facility]. Pt is A & O x4 and in no apparent distress. Pt verbalizes understanding of ALL Dc orders and understands the importance of following up with PCP. Pt's IC removed intact. pt understands the importance to go to his AA meetings and stop drinking alcohol. pt packed his belongings and was taken to the front where he was taken to the [place].
[2020-07-29] MEDS ORDERED: pantoprazole 40mg Tablet.DR PO SCH (07:30)
== END 2020-07-28 15:32 | disposition home or self-care (01) | DRG 282 ==
LOC: ER 16:22 → ED HOLD 20:53 → SUR 3N 22:40
PROVIDERS: ADMIT Internal Medicine; ATTEND Internal Medicine
DX: K85.20 Alcohol induced acute pancreatitis without necrosis or infection (principal); E87.2 Acidosis; E87.6 Hypokalemia; F10.229 Alcohol dependence with intoxication, unspecified; F32.9 Major depressive disorder, single episode, unspecified; F15.90 Other stimulant use, unspecified, uncomplicated; Z59.0 Homelessness; Z80.42 Family history of malignant neoplasm of prostate; Z71.41 Alcohol abuse counseling and surveillance of alcoholic; Z79.899 Other long term (current) drug therapy
CPT/HCPCS: 36415; 80053; 80320; 81001; 82948; 83605; 83690; 85008; 85025; 87081; 96361; 96374; 96375; 99285; C9113; G0378; J1170; J2060; J2270; J2405; J3411; J3480; J7030; J7042; J7070

== ENCOUNTER 2020-07-30 22:29 | Emergency (ER) | payer MEDICAID ==
[~2020-07-30] VITALS: Ht 167.6 cm; Wt 47.7 kg
[~2020-07-30 22:29] MED LIST changes: +CLON-369 PO; -CLON0.1T2 PO; -CYAN250010 PO; -FAMO40TA73 PO; -FERR-116 PO; -LURA40TA3 PO; +LURA80TA3 PO; -METO5TAB85 PO; -NALT50TA PO; +ONDA4TAB12 PO; -ONDA8TAB13 PO; -PANT20TA18 PO; -PANT20TA2 PO; +PANT40TA54 PO; -PROC-8 PO; -PROM12.512 PO
[2020-07-30] MEDS ORDERED: normal saline 1000ML IV soln IVB ONE (23:10)
[2020-07-30 23:42] LABS: BASOPHILS # (AUTO) 0.1 X10'3 (0-0.2); LYMPHOCYTES % (AUTO) 18.1 % (21-51); MEAN PLATELET VOLUME 6.8 FL (7.4-10.4); RED BLOOD COUNT 3.64 X10'6 (4.70-6.10)
[2020-07-30 23:44] LABS: BASOPHILS % (AUTO) 0.6 % (0-1); EOSINOPHILS % (AUTO) 0.3 % (0-6); HEMATOCRIT 33.2 % (42.0-52.0); HEMOGLOBIN 11.1 g/dl (14.0-17.9); MEAN CORPUSCULAR HEMOGLOBIN 30.5 PG (27.0-31.0); MEAN CORPUSCULAR HGB CONC 33.5 g/dL (33.0-36.5); MEAN CORPUSCULAR VOLUME 91.1 FL (78-98); MONOCYTES # (AUTO) 1.3 X10'3 (0-0.9); MONOCYTES % (AUTO) 11.2 % (2-12); NEUTROPHILS # (AUTO) 7.8 X10'3 (1.8-7.7); NEUTROPHILS % (AUTO) 69.8 % (42-75); PLATELET COUNT 436 X10'3 (140-440); RED CELL DISTRIBUTION WIDTH 18.9 % (11.5-14.5); WHITE BLOOD COUNT 11.2 X10'3 (4.5-11.0)
[2020-07-31 00:51] LABS: ALANINE AMINOTRANSFERASE 27 U/L (12-78); ALBUMIN 3.5 G/DL (3.4-5.0); ALBUMIN/GLOBULIN RATIO 0.8 (1.1-1.5); ALKALINE PHOSPHATASE 135 IU/L (46-116); ANION GAP 14 (8-16); ASPARTATE AMINO TRANSFERASE 30 U/L (10-37); BILIRUBIN,TOTAL 0.6 MG/DL (0.1-1.0); BLOOD UREA NITROGEN 14 MG/DL (7-18); BUN/CREATININE RATIO 17.7 (5.4-32.0); CALCIUM 8.8 MG/DL (8.5-10.1); CHLORIDE 91 MMOL/L (99-107); CREATININE 0.79 MG/DL (0.60-1.10); GLUCOSE 94 MG/DL (70-104); SODIUM 130 MMOL/L (135-145); TOTAL CARBON DIOXIDE 25.1 MMOL/L (24-32); TOTAL PROTEIN 7.9 G/DL (6.4-8.2); eGFR > 90 ML/MIN
[2020-07-31 00:52] LABS: LIPASE 196 U/L (73-393); MAGNESIUM 2.1 MG/DL (1.5-2.4)
[2020-07-31 00:53] LABS: ETHANOL 0.391 GM/DL (0.0-0.010); POTASSIUM 3.5 MMOL/L (3.5-5.1)
[2020-07-31] MEDS ORDERED: famotidine/PF 10 mg/ml inj IV ONE (01:00)
[2020-07-31] MEDS ORDERED: magnesium oxide 400mg tablet PO ONE (01:00)
[2020-07-31] MEDS ORDERED: phenobarbital inj 260 MG in normal saline 100ml IV soln 100 ML IV ONE (01:00)
[2020-07-31] MEDS ORDERED: normal saline 1000ML IV soln IVB ONE (01:00)
[2020-07-31] MEDS ORDERED: thiamine 100mg tablet PO ONE (01:00)
[2020-07-31] MEDS ORDERED: ondansetron/PF 4mg/2ml inj IV ONE (01:00)
[2020-07-31] MEDS ORDERED: pantoprazole 40 MG vial IV ONE (01:00)
[2020-07-31 04:36] VITALS: BP 125/82
== END 2020-07-31 04:43 | disposition home or self-care (01) ==
LOC: ER 22:30
DX: G89.29 Other chronic pain (principal); F10.129 Alcohol abuse with intoxication, unspecified; R10.10 Upper abdominal pain, unspecified; F31.9 Bipolar disorder, unspecified; F15.90 Other stimulant use, unspecified, uncomplicated; Z72.89 Other problems related to lifestyle; Z59.0 Homelessness; Z79.899 Other long term (current) drug therapy; Y90.9 Presence of alcohol in blood, level not specified
CPT/HCPCS: 80053; 80320; 83690; 83735; 85025; 93005; 96361; 96365; 96375; 99284; C9113; J2405; J2560; J3490; J7030

== ENCOUNTER 2020-08-05 14:15 | Emergency (ER) | payer MEDICAID ==
[~2020-08-05] VITALS: Ht 167.6 cm; Wt 59.0 kg
[2020-08-05] MEDS ORDERED: thiamine 100mg/ml 2ml inj. IV ONE (14:40)
[2020-08-05] MEDS ORDERED: normal saline 1000ML IV soln IVB ONE (14:40)
[2020-08-05] MEDS ORDERED: folic acid 1mg/0.2ml inj IV ONE (14:40)
[2020-08-05 15:07] LABS: BASOPHILS # (AUTO) 0.1 X10'3 (0-0.2); BASOPHILS % (AUTO) 0.9 % (0-1); EOSINOPHILS % (AUTO) 0.1 % (0-6); HEMATOCRIT 32.3 % (42.0-52.0); HEMOGLOBIN 10.8 g/dl (14.0-17.9); LYMPHOCYTES # (AUTO) 1.2 X10'3 (1.1-4.8); LYMPHOCYTES % (AUTO) 13.5 % (21-51); MEAN CORPUSCULAR HEMOGLOBIN 30.3 PG (27.0-31.0); MEAN CORPUSCULAR HGB CONC 33.4 g/dL (33.0-36.5); MEAN CORPUSCULAR VOLUME 90.6 FL (78-98); MEAN PLATELET VOLUME 6.1 FL (7.4-10.4); MONOCYTES # (AUTO) 0.6 X10'3 (0-0.9); MONOCYTES % (AUTO) 7.1 % (2-12); NEUTROPHILS # (AUTO) 6.8 X10'3 (1.8-7.7); NEUTROPHILS % (AUTO) 78.4 % (42-75); PLATELET COUNT 556 X10'3 (140-440); RED BLOOD COUNT 3.57 X10'6 (4.70-6.10); RED CELL DISTRIBUTION WIDTH 20.9 % (11.5-14.5); WHITE BLOOD COUNT 8.7 X10'3 (4.5-11.0)
[2020-08-05 15:22] LABS: PLATELET ESTIMATE INCREASED
[2020-08-05 15:23] LABS: ANISOCYTOSIS 3+
[2020-08-05 15:26] LABS: CLARITY,URINE CLEAR (Clear); COLOR,URINE STRAW (Yellow); GLUCOSE, URINE NEGATIVE (Neg); KETONES,URINE NEGATIVE (Neg); LEUKOCYTE ESTERASE ,URINE NEGATIVE (Neg); NITRITES, URINE NEGATIVE (Neg); OCCULT BLOOD,URINE NEGATIVE (Neg); PH,URINE 5.5 (4.8-8.0); PROTEIN,URINE NEGATIVE (Neg); UROBILINOGEN,URINE 0.2 E.U/dL (0.2-1.0)
[2020-08-05 15:26] LABS: ALANINE AMINOTRANSFERASE 19 U/L (12-78); ALBUMIN/GLOBULIN RATIO 0.7 (1.1-1.5); ALKALINE PHOSPHATASE 150 IU/L (46-116); ANION GAP 16 (8-16); ASPARTATE AMINO TRANSFERASE 19 U/L (10-37); BILIRUBIN,TOTAL 0.3 MG/DL (0.1-1.0); BLOOD UREA NITROGEN 6 MG/DL (7-18); BUN/CREATININE RATIO 10.5 (5.4-32.0); CALCIUM 8.4 MG/DL (8.5-10.1); CHLORIDE 95 MMOL/L (99-107); CREATININE 0.57 MG/DL (0.60-1.10); GLUCOSE 98 MG/DL (70-104); LIPASE 388 U/L (73-393); SODIUM 137 MMOL/L (135-145); TOTAL CARBON DIOXIDE 26.4 MMOL/L (24-32); TOTAL PROTEIN 7.4 G/DL (6.4-8.2); eGFR > 90 ML/MIN
[2020-08-05 15:31] LABS: UA COLLECTION TYPE CLN CATCH MIDSTREAM; URINE AMPHETAMINE SCREEN NEGATIVE (Neg); URINE BARBITUATE SCREEN POSITIVE (Neg); URINE BENZODIAZEPINES SCREEN POSITIVE (Neg); URINE CANNABINOID SCREEN NEGATIVE (Neg); URINE COCAINE SCREEN NEGATIVE (Neg); URINE METHADONE SCREEN NEGATIVE (Neg); URINE OPIATE SCREEN NEGATIVE (Neg); URINE PHENCYCLIDINE SCREEN NEGATIVE (Neg)
[2020-08-05] MEDS ORDERED: potassium Cl 20 mEq SR tablet PO STA (15:34)
[2020-08-05] MEDS ORDERED: potassium Cl 10 mEq/100mL bag IV ONE (15:35)
[2020-08-05] MEDS ORDERED: magnesium 2GM in 50ml NS 50 ML IV ONE (15:35)
[2020-08-05] MEDS ORDERED: LORA-269 PO (16:05)
[2020-08-05] MEDS ORDERED: ONDA4TAB6 PO (16:05)
[2020-08-05] MEDS ORDERED: GABA-530 PO (16:05)
[2020-08-05 18:25] VITALS: BP 113/86
== END 2020-08-05 18:25 | disposition home or self-care (01) ==
LOC: ER 14:16
DX: F10.229 Alcohol dependence with intoxication, unspecified (principal); E87.6 Hypokalemia; F31.9 Bipolar disorder, unspecified; R10.13 Epigastric pain; E86.0 Dehydration; F15.90 Other stimulant use, unspecified, uncomplicated; Z72.89 Other problems related to lifestyle; Z59.0 Homelessness; Z79.899 Other long term (current) drug therapy; Y90.0 Blood alcohol level of less than 20 mg/100 ml
CPT/HCPCS: 80053; 80305; 80320; 81003; 82140; 83690; 85008; 85025; 93005; 96365; 96366; 96368; 96375; 99284; J3411; J3475; J3480; J3490; J7030

== ENCOUNTER 2021-04-01 08:30 | Emergency (ER) | payer MEDICAID ==
[~2021-04-01] VITALS: Ht 167.6 cm; Wt 63.6 kg
[~2021-04-01 08:30] MED LIST changes: +GABA-530 PO; +LORA-269 PO; +LURA80TA2 PO; -LURA80TA3 PO; +ONDA4TAB6 PO
[2021-04-01 08:42] VITALS: BP 111/78
[2021-04-01] MEDS ORDERED: CefTRIAXone 1000mg IM Kit (w/lidocaine diluent) IM ONE (09:10)
[2021-04-01] MEDS ORDERED: TETanus/Pertussis (Acell)/Diphther VAC/PF (Tdap-Adult) 0.5ml syringe IMVAC ONE (09:10)
[2021-04-01] MEDS ORDERED: CEPH-585 PO (10:04)
[2021-04-01] MEDS ORDERED: SULF1TAB49 PO (10:04)
== END 2021-04-01 10:31 | disposition home or self-care (01) ==
LOC: ER 08:30
DX: S61.011A Laceration without foreign body of right thumb without damage to nail, initial encounter (principal); W45.8XXA Other foreign body or object entering through skin, initial encounter; Y93.89 Activity, other specified; Y92.89 Other specified places as the place of occurrence of the external cause; Y99.8 Other external cause status
CPT/HCPCS: 73140; 90471; 90715; 96372; 99284; J0696

== ENCOUNTER 2021-04-02 07:03 | Emergency (ER) | payer MEDICAID ==
[~2021-04-02] VITALS: Ht 167.6 cm; Wt 63.0 kg
[~2021-04-02 07:03] MED LIST changes: +CEPH-585 PO; +SULF1TAB49 PO
[2021-04-02] MEDS ORDERED: vancomycin/NS 1 GM ADD-VANTAGE 250 ML IV ONE (07:30)
[2021-04-02 11:07] VITALS: BP 114/82
--- NOTE | 2021-04-05 09:58 | NUR ---
PT CALLED AT THE PHONE # LISTED; [facility]. MESSAGE WAS LEFT WITH COUNSELOR FOR PT TO RETUNE CALL REGARDING VISIT ON 04/02/21
== END 2021-04-02 11:11 | disposition home or self-care (01) ==
LOC: ER 07:03
DX: L03.011 Cellulitis of right finger (principal); F15.90 Other stimulant use, unspecified, uncomplicated; Z72.89 Other problems related to lifestyle; Z59.00 Homelessness unspecified; Z87.19 Personal history of other diseases of the digestive system; Z79.2 Long term (current) use of antibiotics; Z79.899 Other long term (current) drug therapy
CPT/HCPCS: 26010; 87070; 87077; 87186; 96365; 99284; J3370

== ENCOUNTER 2021-11-04 11:43 | Inpatient (IN) | payer MEDICAID ==
[~2021-11-04] VITALS: Ht 167.6 cm; Wt 61.4 kg
[~2021-11-04 11:43] MED LIST changes: -SULF1TAB49 PO
[2021-11-04 13:02] LABS: BASOPHILS # (AUTO) 0.1 X10'3 (0-0.2); BASOPHILS % (AUTO) 1.1 % (0-1); EOSINOPHILS # (AUTO) 0.2 X10'3 (0-0.9); HEMATOCRIT 43.9 % (42.0-52.0); HEMOGLOBIN 15.2 g/dl (14.0-17.9); LYMPHOCYTES % (AUTO) 22.7 % (21-51); MEAN CORPUSCULAR HEMOGLOBIN 29.5 PG (27.0-31.0); MEAN CORPUSCULAR HGB CONC 34.7 g/dL (33.0-36.5); MEAN CORPUSCULAR VOLUME 85.1 FL (78-98); MEAN PLATELET VOLUME 6.9 FL (7.4-10.4); MONOCYTES # (AUTO) 0.3 X10'3 (0-0.9); MONOCYTES % (AUTO) 3.6 % (2-12); NEUTROPHILS # (AUTO) 6.1 X10'3 (1.8-7.7); NEUTROPHILS % (AUTO) 70.6 % (42-75); PLATELET COUNT 263 X10'3 (140-440); RED BLOOD COUNT 5.16 X10'6 (4.70-6.10); WHITE BLOOD COUNT 8.6 X10'3 (4.5-11.0)
[2021-11-04 13:16] LABS: ALANINE AMINOTRANSFERASE 75 U/L (12-78); ALBUMIN 3.6 G/DL (3.4-5.0); ALBUMIN/GLOBULIN RATIO 1.2 (1.1-1.5); ALKALINE PHOSPHATASE 112 IU/L (46-116); ANION GAP 13 (8-16); ASPARTATE AMINO TRANSFERASE 32 U/L (10-37); BILIRUBIN,TOTAL 0.6 MG/DL (0.1-1.0); BLOOD UREA NITROGEN 23 MG/DL (7-18); CHLORIDE 103 MMOL/L (99-107); CREATININE 0.82 MG/DL (0.60-1.10); GLUCOSE 148 MG/DL (70-104); LIPASE 273 U/L (73-393); POTASSIUM 3.4 MMOL/L (3.5-5.1); SODIUM 139 MMOL/L (135-145); TOTAL CARBON DIOXIDE 23.1 MMOL/L (24-32); TOTAL PROTEIN 6.6 G/DL (6.4-8.2); eGFR > 90 ML/MIN
[2021-11-04 15:20] LABS: CLARITY,URINE CLEAR (Clear); COLOR,URINE YELLOW (Yellow); GLUCOSE, URINE NEGATIVE (Neg); KETONES,URINE TRACE mg/dl (Neg); LEUKOCYTE ESTERASE ,URINE NEGATIVE (Neg); NITRITES, URINE NEGATIVE (Neg); OCCULT BLOOD,URINE NEGATIVE (Neg); PH,URINE 6.5 (4.8-8.0); PROTEIN,URINE TRACE mg/dl (Neg)
[2021-11-04 15:22] LABS: UA COLLECTION TYPE CLN CATCH MIDSTREAM
[2021-11-04 15:34] LABS: BACTERIA,URINE FEW /HPF (Neg); HYALINE CASTS 0-3 /LPF (NEGATIVE); MUCUS STRANDS MODERATE /LPF (Neg); RBC,URINE NONE SEEN /HPF (0-2); SQUAMOUS EPITHELIAL CELL,UR FEW /LPF (FEW); WBC,URINE 0-4 /HPF (0-4)
[2021-11-04] MEDS ORDERED: morphine 4 MG/ML inj SYRINge IV ONE ×2 (16:05→18:20)
[2021-11-04] MEDS ORDERED: ringers solution, lacted 1,000 ML IV ONE ×2 (16:05→18:20)
[2021-11-04] MEDS ORDERED: iohexol 350MG/ML 100ml bottle IV ONE (16:54)
[2021-11-04] MEDS ORDERED: ondansetron/PF 4mg/2ml inj IV ONE (18:40)
[2021-11-04] MEDS ORDERED: diphenhydrAMINE 50 mg/ml inj ONE (19:26)
[2021-11-04] MEDS ORDERED: acetaminophen 650mg rectal suppository RC PRN (20:35)
[2021-11-04] MEDS ORDERED: HYDROcodone/acetaminophen 5mg/325mg tablet PO PRN (20:35)
[2021-11-04] MEDS ORDERED: magnesium 4gm in 100ml NS 100 ML IV PRN (20:35)
[2021-11-04] MEDS ORDERED: diphenhydrAMINE 25mg capsule PO PRN (20:35)
[2021-11-04] MEDS ORDERED: mag hydrox/Alum hydrox/simeth 30ml oral suspension PO PRN ×2 (20:35)
[2021-11-04] MEDS: pantoprazole 40MG/NS 100ML BAG 100 ML IV SCH (20:35)
[2021-11-04] MEDS ORDERED: POTASSIUM BICARB 20meq eff tab 20 MEQ TABLET.EFF PO PRN ×2 (20:35)
[2021-11-04] MEDS ORDERED: magnesium hydroxide 30ml (MOM) UD suspension PO PRN (20:35)
[2021-11-04] MEDS ORDERED: diphenhydrAMINE 50 mg/ml inj IV PRN (20:35)
[2021-11-04] MEDS ORDERED: magnesium 2GM in 50ml NS 50 ML IV PRN (20:35)
[2021-11-04] MEDS ORDERED: HYDROmorphone/PF 0.2 MG/ML SYRINGE IV PRN (20:35)
[2021-11-04] MEDS ORDERED: potassium CL 10mEq/100ml bag 100 ML IV PRN (20:35)
[2021-11-04] MEDS ORDERED: acetaminophen 325mg tablet PO PRN ×2 (20:35)
[2021-11-04] MEDS ORDERED: bisacodyl 10mg suppository rectal RC PRN (20:35)
[2021-11-04] MEDS ORDERED: ondansetron/PF 4mg/2ml inj IV PRN (20:35)
[2021-11-04] MEDS ORDERED: NALT50TA PO (20:59)
[2021-11-04] MEDS ORDERED: FERR-106 PO (20:59)
[2021-11-04] MEDS ORDERED: CARI1.5C PO (20:59)
[2021-11-04] MEDS ORDERED: BUPR300T86 PO (20:59)
[2021-11-04] MEDS ORDERED: CYCL5TAB PO (20:59)
[2021-11-04] MEDS ORDERED: TRAZ-256 PO (20:59)
[2021-11-04] MEDS ORDERED: temazepam 15mg capsule PO PRN (21:00)
[2021-11-04 21:05] LABS: MAGNESIUM 1.8 MG/DL (1.5-2.4); PHOSPHORUS 2.5 MG/DL (2.3-4.5)
[2021-11-04] MEDS ORDERED: cyclobenzaprine 10mg tablet PO PRN (21:10)
--- NOTE | 2021-11-04 23:00 | NUR ---
Patient in room ORTHO 4012. I have received report from ESTIVEN Ventura and had the opportunity to ask questions and assume patient care.
[2021-11-04 23:41] VITALS: BP 155/102
[2021-11-04] MEDS: traZODone 50mg tablet PO SCH (23:46)
[2021-11-04] MEDS: normal saline 1000ml 1,000 ML IV SCH (23:46)
[2021-11-05] MEDS: metoclopramide 5 mg/ml inj IV PRN ×2 (00:12→13:22)
[2021-11-05] MEDS: LORazepam 0.5 MG tablet PO PRN ×2 (00:17→18:41)
[2021-11-05] MEDS: HYDROcodone/acetaminophen 10/325mg tab PO PRN ×2 (03:49→08:15)
[2021-11-05 05:00] VITALS: BP 122/72
--- NOTE | 2021-11-05 06:14 | NUR ---
Problems reprioritized. Patient report given, questions answered & plan of care reviewed with ESTIVEN Noriega.
[2021-11-05 06:32] LABS: BASOPHILS % (AUTO) 0.3 % (0-1); EOSINOPHILS # (AUTO) 0.1 X10'3 (0-0.9); EOSINOPHILS % (AUTO) 1.3 % (0-6); HEMATOCRIT 38.3 % (42.0-52.0); HEMOGLOBIN 13.5 g/dl (14.0-17.9); LYMPHOCYTES # (AUTO) 1.6 X10'3 (1.1-4.8); LYMPHOCYTES % (AUTO) 13.7 % (21-51); MEAN CORPUSCULAR HEMOGLOBIN 29.8 PG (27.0-31.0); MEAN CORPUSCULAR HGB CONC 35.3 g/dL (33.0-36.5); MEAN CORPUSCULAR VOLUME 84.4 FL (78-98); MONOCYTES # (AUTO) 0.6 X10'3 (0-0.9); MONOCYTES % (AUTO) 5.2 % (2-12); NEUTROPHILS # (AUTO) 9.2 X10'3 (1.8-7.7); NEUTROPHILS % (AUTO) 79.5 % (42-75); PLATELET COUNT 201 X10'3 (140-440); RED BLOOD COUNT 4.54 X10'6 (4.70-6.10); RED CELL DISTRIBUTION WIDTH 12.9 % (11.5-14.5); WHITE BLOOD COUNT 11.6 X10'3 (4.5-11.0)
[2021-11-05] MEDS: normal saline 1000ml 1,000 ML IV SCH ×2 (06:35→19:46)
[2021-11-05 06:39] LABS: ALANINE AMINOTRANSFERASE 52 U/L (12-78); ALBUMIN 3.4 G/DL (3.4-5.0); ALBUMIN/GLOBULIN RATIO 1.3 (1.1-1.5); ALKALINE PHOSPHATASE 112 IU/L (46-116); AMYLASE 67 U/L (25-115); ANION GAP 10 (8-16); ASPARTATE AMINO TRANSFERASE 30 U/L (10-37); BILIRUBIN,TOTAL 1.6 MG/DL (0.1-1.0); BLOOD UREA NITROGEN 11 MG/DL (7-18); BUN/CREATININE RATIO 15.9 (5.4-32.0); CALCIUM 7.6 MG/DL (8.5-10.1); CHLORIDE 98 MMOL/L (99-107); CREATININE 0.69 MG/DL (0.60-1.10); GLUCOSE 98 MG/DL (70-104); LIPASE 542 U/L (73-393); MAGNESIUM 1.4 MG/DL (1.5-2.4); PHOSPHORUS 2.9 MG/DL (2.3-4.5); POTASSIUM 3.7 MMOL/L (3.5-5.1); SODIUM 133 MMOL/L (135-145); TOTAL CARBON DIOXIDE 25.4 MMOL/L (24-32); eGFR > 90 ML/MIN
--- NOTE | 2021-11-05 06:39 | NUR ---
Patient in room ORTHO 4012. I have received report from ESTIVEN Bob and had the opportunity to ask questions and assume patient care.
[2021-11-05] MEDS: docusate sod 100mg capsule PO SCH ×2 (08:00→19:47)
[2021-11-05] MEDS: K and/or MAG REPLACEMENT MC SCH ×2 (08:00→19:36)
[2021-11-05] MEDS: pantoprazole 40MG/NS 100ML BAG 100 ML IV SCH (08:12)
[2021-11-05] MEDS: buPROPion SR 150mg tablet PO SCH ×2 (08:13→19:47)
[2021-11-05] MEDS: CARIPRAZINE 1.5 MG CAPSULE PO SCH (08:13)
[2021-11-05] MEDS: multivitamins, therapeutics tablet PO SCH (08:13)
[2021-11-05] MEDS: naltrexone 50mg tablet PO SCH (08:14)
[2021-11-05] MEDS: ferrous sulfate 325mg tablet PO SCH ×2 (08:14→19:47)
[2021-11-05] MEDS: ondansetron 4mg rapidly disintigrating tab PO PRN (08:15)
[2021-11-05] MEDS: magnesium Cl slow-release 64mg tablet PO PRN ×2 (08:31→22:28)
--- NOTE | 2021-11-05 08:50 | NUR ---
Malnutrition consult: Pt reports wt loss with decreased appetite per malnutrition risk screen with RN. Most recent scaled wt in EMR is 63.6 kg taken 04/01. No documentation of how current wt was obtained though if accurate this is non-significant wt loss of 3.5% in seven months. Pending documentation of PO intake on clear liquid diet. Per EMR pt with no decrease in muscle strength or edema and pt appears well developed well nourished per H&P. Pt currently lacks a minimum of two criteria for malnutrition. Will continue to follow. Addendum: 11/05/21 at [address] Amended: Links added.
[2021-11-05] MEDS: HYDROmorphone inj. 0.5 MG/0.5 ML DISP.SYRIN IV PRN ×3 (13:22→22:27)
[2021-11-05 18:00] VITALS: BP 141/93
--- NOTE | 2021-11-05 18:21 | NUR ---
Patient in room ORTHO 4012. I have received report from ESTIVEN Noriega and had the opportunity to ask questions and assume patient care.
--- NOTE | 2021-11-05 18:32 | NUR ---
Problems reprioritized. Patient report given, questions answered & plan of care reviewed with ESTIVEN Bob.
[2021-11-05 22:00] VITALS: BP 153/98
[2021-11-05] MEDS: traZODone 50mg tablet PO SCH (22:28)
[2021-11-06] MEDS: normal saline 1000ml 1,000 ML IV SCH ×3 (03:44→15:45)
[2021-11-06 05:00] VITALS: BP 155/96
[2021-11-06] MEDS: HYDROmorphone inj. 0.5 MG/0.5 ML DISP.SYRIN IV PRN ×5 (05:08→22:44)
[2021-11-06 05:50] LABS: BASOPHILS % (AUTO) 0.2 % (0-1); EOSINOPHILS # (AUTO) 0.1 X10'3 (0-0.9); EOSINOPHILS % (AUTO) 1.1 % (0-6); HEMATOCRIT 38.7 % (42.0-52.0); HEMOGLOBIN 13.6 g/dl (14.0-17.9); LYMPHOCYTES # (AUTO) 1.2 X10'3 (1.1-4.8); LYMPHOCYTES % (AUTO) 14.2 % (21-51); MEAN CORPUSCULAR HEMOGLOBIN 29.6 PG (27.0-31.0); MEAN CORPUSCULAR HGB CONC 35.2 g/dL (33.0-36.5); MEAN CORPUSCULAR VOLUME 84.1 FL (78-98); MEAN PLATELET VOLUME 7.4 FL (7.4-10.4); MONOCYTES # (AUTO) 0.6 X10'3 (0-0.9); MONOCYTES % (AUTO) 6.9 % (2-12); NEUTROPHILS # (AUTO) 6.4 X10'3 (1.8-7.7); NEUTROPHILS % (AUTO) 77.6 % (42-75); PLATELET COUNT 192 X10'3 (140-440); RED CELL DISTRIBUTION WIDTH 12.8 % (11.5-14.5); WHITE BLOOD COUNT 8.2 X10'3 (4.5-11.0)
[2021-11-06 06:01] LABS: ALANINE AMINOTRANSFERASE 46 U/L (12-78); ALBUMIN 3.2 G/DL (3.4-5.0); ALBUMIN/GLOBULIN RATIO 1.1 (1.1-1.5); ALKALINE PHOSPHATASE 108 IU/L (46-116); AMYLASE 66 U/L (25-115); ANION GAP 10 (8-16); ASPARTATE AMINO TRANSFERASE 23 U/L (10-37); BILIRUBIN,TOTAL 0.8 MG/DL (0.1-1.0); BLOOD UREA NITROGEN 5 MG/DL (7-18); BUN/CREATININE RATIO 7.8 (5.4-32.0); CALCIUM 8.1 MG/DL (8.5-10.1); CHLORIDE 99 MMOL/L (99-107); CREATININE 0.64 MG/DL (0.60-1.10); GLUCOSE 117 MG/DL (70-104); LIPASE 435 U/L (73-393); PHOSPHORUS 2.4 MG/DL (2.3-4.5); SODIUM 133 MMOL/L (135-145); TOTAL CARBON DIOXIDE 24.3 MMOL/L (24-32); TOTAL PROTEIN 6.2 G/DL (6.4-8.2); eGFR > 90 ML/MIN
--- NOTE | 2021-11-06 06:12 | NUR ---
Problems reprioritized. Patient report given, questions answered & plan of care reviewed with ESTIVEN Rodriguez.
[2021-11-06] MEDS: K and/or MAG REPLACEMENT MC SCH ×2 (08:00→20:00)
[2021-11-06] MEDS: ferrous sulfate 325mg tablet PO SCH ×3 (08:00→21:31)
[2021-11-06] MEDS: naltrexone 50mg tablet PO SCH (09:23)
[2021-11-06] MEDS: pantoprazole 40MG/NS 100ML BAG 100 ML IV SCH (09:23)
[2021-11-06] MEDS: docusate sod 100mg capsule PO SCH ×2 (09:23→21:31)
[2021-11-06] MEDS: CARIPRAZINE 1.5 MG CAPSULE PO SCH (09:23)
[2021-11-06] MEDS: multivitamins, therapeutics tablet PO SCH (09:23)
[2021-11-06] MEDS: buPROPion SR 150mg tablet PO SCH ×2 (09:30→21:31)
[2021-11-06] MEDS: ondansetron 4mg rapidly disintigrating tab PO PRN (09:30)
[2021-11-06 10:00] VITALS: BP 153/98
[2021-11-06] MEDS: metoclopramide 5 mg/ml inj IV PRN (13:17)
[2021-11-06 13:31] VITALS: BP 141/91
[2021-11-06 18:30] VITALS: BP 155/71
--- NOTE | 2021-11-06 18:37 | NUR ---
Report given to Nayana RN, all questions answered at this time. Patient medicated for pain and no other current complaints. Pt awake in bed, no distress.
[2021-11-06] MEDS: LORazepam 0.5 MG tablet PO PRN (21:31)
[2021-11-06 22:00] VITALS: BP 150/45
[2021-11-06] MEDS: traZODone 50mg tablet PO SCH (22:44)
[2021-11-07] MEDS: normal saline 1000ml 1,000 ML IV SCH (01:19)
[2021-11-07 06:00] VITALS: BP 135/84
[2021-11-07 06:22] LABS: BASOPHILS % (AUTO) 0.4 % (0-1); EOSINOPHILS # (AUTO) 0.1 X10'3 (0-0.9); EOSINOPHILS % (AUTO) 1.3 % (0-6); HEMATOCRIT 35.3 % (42.0-52.0); HEMOGLOBIN 12.7 g/dl (14.0-17.9); LYMPHOCYTES # (AUTO) 1.4 X10'3 (1.1-4.8); LYMPHOCYTES % (AUTO) 23.5 % (21-51); MEAN CORPUSCULAR HEMOGLOBIN 30.1 PG (27.0-31.0); MEAN CORPUSCULAR HGB CONC 35.9 g/dL (33.0-36.5); MEAN CORPUSCULAR VOLUME 83.7 FL (78-98); MEAN PLATELET VOLUME 7.3 FL (7.4-10.4); MONOCYTES # (AUTO) 0.4 X10'3 (0-0.9); MONOCYTES % (AUTO) 7.4 % (2-12); NEUTROPHILS # (AUTO) 3.9 X10'3 (1.8-7.7); NEUTROPHILS % (AUTO) 67.4 % (42-75); PLATELET COUNT 164 X10'3 (140-440); RED BLOOD COUNT 4.22 X10'6 (4.70-6.10); RED CELL DISTRIBUTION WIDTH 13.1 % (11.5-14.5); WHITE BLOOD COUNT 5.9 X10'3 (4.5-11.0)
[2021-11-07 06:41] LABS: ALANINE AMINOTRANSFERASE 37 U/L (12-78); ALBUMIN 3.1 G/DL (3.4-5.0); ALKALINE PHOSPHATASE 90 IU/L (46-116); AMYLASE 63 U/L (25-115); ANION GAP 9 (8-16); ASPARTATE AMINO TRANSFERASE 20 U/L (10-37); BILIRUBIN,TOTAL 0.6 MG/DL (0.1-1.0); BLOOD UREA NITROGEN 7 MG/DL (7-18); BUN/CREATININE RATIO 10.9 (5.4-32.0); CALCIUM 7.9 MG/DL (8.5-10.1); CHLORIDE 101 MMOL/L (99-107); CREATININE 0.64 MG/DL (0.60-1.10); GLUCOSE 105 MG/DL (70-104); LIPASE 340 U/L (73-393); MAGNESIUM 1.8 MG/DL (1.5-2.4); PHOSPHORUS 2.7 MG/DL (2.3-4.5); POTASSIUM 3.5 MMOL/L (3.5-5.1); SODIUM 134 MMOL/L (135-145); TOTAL CARBON DIOXIDE 23.7 MMOL/L (24-32); TOTAL PROTEIN 6.1 G/DL (6.4-8.2); eGFR > 90 ML/MIN
[2021-11-07] MEDS: HYDROmorphone inj. 0.5 MG/0.5 ML DISP.SYRIN IV PRN (06:42)
--- NOTE | 2021-11-07 06:45 | NUR ---
Patient in room ORTHO 4012A. I have received report from ESTIVEN SINHA and had the opportunity to ask questions and assume patient care.
[2021-11-07] MEDS ORDERED: pantoprazole 40mg Tablet.DR PO SCH (07:30)
[2021-11-07] MEDS: ferrous sulfate 325mg tablet PO SCH (08:00)
[2021-11-07] MEDS: K and/or MAG REPLACEMENT MC SCH (08:00)
[2021-11-07] MEDS: CARIPRAZINE 1.5 MG CAPSULE PO SCH (08:15)
[2021-11-07] MEDS: multivitamins, therapeutics tablet PO SCH (08:15)
[2021-11-07] MEDS: docusate sod 100mg capsule PO SCH (08:15)
[2021-11-07] MEDS: naltrexone 50mg tablet PO SCH (08:15)
[2021-11-07] MEDS: buPROPion SR 150mg tablet PO SCH (08:15)
[2021-11-07] MEDS: metoclopramide 5 mg/ml inj IV PRN (08:20)
[2021-11-07 10:00] VITALS: BP 119/72
--- NOTE | 2021-11-07 11:41 | NUR ---
Met with patient in regards to alcohol use and to see if patient wanted any resources for treatment options. Patient just got out of a 18 month program a couple months ago. He said he had a bad week and doesn't plan on drinking again. I asked patient about having a sponsor and he does have one, he just didn't reach out to him. I encouraged patient to reach out so he can get the support that he needs.
[2021-11-07] MEDS ORDERED: MULT-25 PO (13:08)
[2021-11-07] MEDS ORDERED: PANT40TA54 PO (13:08)
[2021-11-07] MEDS ORDERED: LORA-269 PO (13:08)
[2021-11-07] MEDS ORDERED: FOLI0.4T6 PO (13:08)
[2021-11-07] MEDS ORDERED: THIA50TA10 PO (13:08)
--- NOTE | 2021-11-07 15:49 | NUR ---
PATIENT STABLE AND APPROPRIATE FOR DISCHARGE, IV REMOVED, EDUCATION GIVEN, NEW MEDS E-SCRIPTED TO PREFERRED PHARMACY, ALL BELONGING SENT WITH PATIENT, PATIENT WALKED TO LOBBY WHERE PATIENT WILL DRIVE SELF HOME
[2021-11-09] MEDS ORDERED: thiamine 100mg tablet PO SCH (08:00)
[2021-11-09] MEDS ORDERED: folic acid 1mg tablet PO SCH (08:00)
== END 2021-11-07 15:50 | disposition home or self-care (01) | DRG 282 ==
LOC: ER 11:44 → ED HOLD 20:36 → OBSVTOIN 20:36 → ORTHO 4S 23:20
PROVIDERS: ADMIT Family Medicine; ATTEND Family Medicine
PROC: BW211ZZ Computerized Tomography (CT Scan) of Abdomen and Pelvis using Low Osmolar Contrast (ICD-10-PCS; principal; 2021-11-04)
DX: K85.20 Alcohol induced acute pancreatitis without necrosis or infection (principal); E87.6 Hypokalemia; F31.9 Bipolar disorder, unspecified; F10.20 Alcohol dependence, uncomplicated; F15.90 Other stimulant use, unspecified, uncomplicated; Z87.11 Personal history of peptic ulcer disease; Z59.00 Homelessness unspecified; Z88.5 Allergy status to narcotic agent; Z79.899 Other long term (current) drug therapy; Z71.41 Alcohol abuse counseling and surveillance of alcoholic
CPT/HCPCS: 36415; 74177; 76700; 80053; 81001; 82150; 83690; 83735; 84100; 85025; 87081; 99285; C9113; G0378; J1170; J1200; J2270; J2405; J2765; J3490; J7030; J7120; Q9967

== ENCOUNTER 2022-02-02 05:24 | Emergency (ER) | payer MEDICAID ==
[~2022-02-02] VITALS: Ht 167.6 cm; Wt 57.2 kg
[~2022-02-02 05:24] MED LIST changes: +BUPR300T86 PO; +CARI1.5C PO; -CEPH-585 PO; -CLON-369 PO; +CYCL5TAB PO; +FERR-106 PO; -GABA-530 PO; -LURA80TA2 PO; +MULT-25 PO; +NALT50TA PO; -ONDA4TAB12 PO; -ONDA4TAB6 PO; +THIA50TA10 PO; +TRAZ-256 PO
[2022-02-02] MEDS ORDERED: normal saline 1000ML IV soln IVB ONE (05:45)
[2022-02-02] MEDS ORDERED: thiamine 100mg/ml 2ml inj. IV ONE (05:45)
[2022-02-02 06:13] LABS: CLARITY,URINE SLIGHTLY CLOUDY (Clear); COLOR,URINE YELLOW (Yellow); GLUCOSE, URINE NEGATIVE (Neg); KETONES,URINE NEGATIVE (Neg); LEUKOCYTE ESTERASE ,URINE NEGATIVE (Neg); NITRITES, URINE NEGATIVE (Neg); OCCULT BLOOD,URINE NEGATIVE (Neg); PH,URINE 7.5 (4.8-8.0); PROTEIN,URINE NEGATIVE (Neg); UROBILINOGEN,URINE 0.2 E.U/dL (0.2-1.0)
[2022-02-02 06:23] LABS: UA COLLECTION TYPE CLN CATCH MIDSTREAM
[2022-02-02 06:24] LABS: AMORPHOUS PHOSPHATES 2+
[2022-02-02 06:26] LABS: CELLULAR CAST 0-4 /LPF (NEGATIVE); HYALINE CASTS 0-3 /LPF (NEGATIVE)
[2022-02-02 06:27] LABS: BACTERIA,URINE NONE SEEN /HPF (Neg); MUCUS STRANDS FEW /LPF (Neg); RBC,URINE NONE SEEN /HPF (0-2); RENAL CELLS, URINE FEW /HPF; SQUAMOUS EPITHELIAL CELL,UR FEW /LPF (FEW); WBC,URINE 0-4 /HPF (0-4)
[2022-02-02] MEDS ORDERED: ketorolac trometh. 30mg/ml inj. IV ONE (06:40)
[2022-02-02] MEDS ORDERED: normal saline 1000ml 1,000 ML IV ONE (06:40)
[2022-02-02] MEDS ORDERED: ondansetron/PF 4mg/2ml inj IV ONE (06:40)
[2022-02-02 07:14] LABS: BASOPHILS # (AUTO) 0.1 X10'3 (0-0.2); BASOPHILS % (AUTO) 2.7 % (0-1); EOSINOPHILS % (AUTO) 0.1 % (0-6); LYMPHOCYTES # (AUTO) 1.2 X10'3 (1.1-4.8); MONOCYTES # (AUTO) 1.1 X10'3 (0-0.9); WHITE BLOOD COUNT 4.1 X10'3 (4.5-11.0)
[2022-02-02 07:16] LABS: HEMATOCRIT 34.8 % (42.0-52.0); HEMOGLOBIN 12.1 g/dl (14.0-17.9); LYMPHOCYTES % (AUTO) 30.1 % (21-51); MEAN CORPUSCULAR HEMOGLOBIN 31.6 PG (27.0-31.0); MEAN CORPUSCULAR HGB CONC 34.6 g/dL (33.0-36.5); MEAN CORPUSCULAR VOLUME 91.2 FL (78-98); MEAN PLATELET VOLUME 6.5 FL (7.4-10.4); MONOCYTES % (AUTO) 27.8 % (2-12); NEUTROPHILS # (AUTO) 1.6 X10'3 (1.8-7.7); NEUTROPHILS % (AUTO) 39.3 % (42-75); PLATELET COUNT 601 X10'3 (140-440); RED BLOOD COUNT 3.82 X10'6 (4.70-6.10); RED CELL DISTRIBUTION WIDTH 15.4 % (11.5-14.5)
[2022-02-02 07:24] LABS: ALANINE AMINOTRANSFERASE 99 U/L (12-78); ALBUMIN 3.4 G/DL (3.4-5.0); ALKALINE PHOSPHATASE 138 IU/L (46-116); AMYLASE 108 U/L (25-115); ANION GAP 12 (8-16); BILIRUBIN,TOTAL 0.7 MG/DL (0.1-1.0); BLOOD UREA NITROGEN 9 MG/DL (7-18); BUN/CREATININE RATIO 12.3 (5.4-32.0); CALCIUM 8.1 MG/DL (8.5-10.1); CHLORIDE 96 MMOL/L (99-107); CREATININE 0.73 MG/DL (0.60-1.10); ETHANOL < 0.010 GM/DL (0.0-0.010); GLUCOSE 96 MG/DL (70-104); LIPASE 248 U/L (73-393); SODIUM 137 MMOL/L (135-145); TOTAL CARBON DIOXIDE 29.1 MMOL/L (24-32); TOTAL PROTEIN 6.9 G/DL (6.4-8.2); eGFR > 90 ML/MIN
[2022-02-02 07:36] LABS: ASPARTATE AMINO TRANSFERASE 102 U/L (10-37); POTASSIUM 3.3 MMOL/L (3.5-5.1)
[2022-02-02] MEDS ORDERED: famotidine/PF 10 mg/ml inj IV ONE (07:40)
[2022-02-02] MEDS ORDERED: ONDA4TAB12 PO (07:41)
[2022-02-02] MEDS ORDERED: NIRM1TAB PO (07:41)
[2022-02-02 07:51] LABS: URINE AMPHETAMINE SCREEN NEGATIVE (Neg); URINE BARBITUATE SCREEN POSITIVE (Neg); URINE BENZODIAZEPINES SCREEN NEGATIVE (Neg); URINE CANNABINOID SCREEN NEGATIVE (Neg); URINE COCAINE SCREEN NEGATIVE (Neg); URINE METHADONE SCREEN NEGATIVE (Neg); URINE OPIATE SCREEN NEGATIVE (Neg); URINE PHENCYCLIDINE SCREEN NEGATIVE (Neg)
[2022-02-02 08:11] VITALS: BP 136/96
[2022-02-02 08:13] LABS: TOTAL CELLS COUNTED 100
[2022-02-02 08:14] LABS: LARGE PLATELETS FEW; PLATELET ESTIMATE INCREASED
== END 2022-02-02 08:17 | disposition home or self-care (01) ==
LOC: ER 05:25
DX: U07.1 COVID-19 (principal); R10.13 Epigastric pain; R11.2 Nausea with vomiting, unspecified; F31.9 Bipolar disorder, unspecified; F15.90 Other stimulant use, unspecified, uncomplicated; Z72.89 Other problems related to lifestyle; Z79.899 Other long term (current) drug therapy
CPT/HCPCS: 36415; 71045; 80053; 80305; 80320; 81001; 82150; 83605; 83690; 84145; 85007; 85025; 87040; 87502; 87503; 87635; 96361; 96374; 96375; 99284; C9803; J1885; J2405; J3411; J3490; J7030

== ENCOUNTER 2022-02-08 15:37 | Emergency (ER) | payer MEDICAID ==
[~2022-02-08 15:37] MED LIST changes: +NIRM1TAB PO; +ONDA4TAB12 PO
[2022-02-08] MEDS ORDERED: normal saline 1000ML IV soln IVB ONE (15:50)
[2022-02-08 16:26] LABS: MEAN CORPUSCULAR HGB CONC 32.8 g/dL (33.0-36.5)
[2022-02-08 16:27] LABS: HEMATOCRIT 41.3 % (42.0-52.0); HEMOGLOBIN 13.5 g/dl (14.0-17.9); MEAN CORPUSCULAR VOLUME 94.4 FL (78-98); MEAN PLATELET VOLUME 6.3 FL (7.4-10.4); PLATELET COUNT 401 X10'3 (140-440); RED BLOOD COUNT 4.37 X10'6 (4.70-6.10); RED CELL DISTRIBUTION WIDTH 16.5 % (11.5-14.5); WHITE BLOOD COUNT 6.4 X10'3 (4.5-11.0)
[2022-02-08 16:49] LABS: ALANINE AMINOTRANSFERASE 99 U/L (12-78); ALBUMIN 3.5 G/DL (3.4-5.0); ALBUMIN/GLOBULIN RATIO 0.9 (1.1-1.5); ALKALINE PHOSPHATASE 128 IU/L (46-116); ANION GAP 13 (8-16); ASPARTATE AMINO TRANSFERASE 112 U/L (10-37); BILIRUBIN,TOTAL 0.2 MG/DL (0.1-1.0); BLOOD UREA NITROGEN 10 MG/DL (7-18); BUN/CREATININE RATIO 12.2 (5.4-32.0); CALCIUM 7.7 MG/DL (8.5-10.1); CHLORIDE 108 MMOL/L (99-107); CREATININE 0.82 MG/DL (0.60-1.10); GLUCOSE 113 MG/DL (70-104); SODIUM 146 MMOL/L (135-145); TOTAL CARBON DIOXIDE 25.4 MMOL/L (24-32); TOTAL PROTEIN 7.3 G/DL (6.4-8.2); eGFR > 90 ML/MIN
[2022-02-08 16:50] LABS: ETHANOL 0.604 GM/DL (0.0-0.010); POTASSIUM 3.9 MMOL/L (3.5-5.1)
[2022-02-08 17:47] LABS: TOTAL CELLS COUNTED 100
[2022-02-08 17:49] LABS: LARGE PLATELETS FEW; PLATELET ESTIMATE NORMAL
[2022-02-08 17:50] LABS: SMUDGE CELLS FEW
[2022-02-08 19:53] LABS: CLARITY,URINE CLEAR (Clear); COLOR,URINE YELLOW (Yellow); GLUCOSE, URINE NEGATIVE (Neg); KETONES,URINE NEGATIVE (Neg); LEUKOCYTE ESTERASE ,URINE NEGATIVE (Neg); OCCULT BLOOD,URINE SMALL (Neg); PROTEIN,URINE NEGATIVE (Neg); UROBILINOGEN,URINE 0.2 E.U/dL (0.2-1.0)
[2022-02-08 20:01] LABS: NITRITES, URINE NEGATIVE (Neg)
[2022-02-08 20:02] LABS: UA COLLECTION TYPE CLN CATCH MIDSTREAM; WBC,URINE 0-4 /HPF (0-4)
[2022-02-08 20:03] LABS: BACTERIA,URINE FEW /HPF (Neg); RBC,URINE 0-2 /HPF (0-2); SQUAMOUS EPITHELIAL CELL,UR FEW /LPF (FEW)
--- NOTE | 2022-02-08 20:45 | NUR ---
PATIENT UNABLE TO AMBULATE WITH OUT ASSIST PA AWARE PATIENT AMBULATED WITH ASSISTANCE AND USING A WALKER FOR 50 FEET
[2022-02-08 21:15] VITALS: BP 128/90
--- NOTE | 2022-02-08 21:28 | NUR ---
PT HAD A BM IN HIS SCRUB BOTTOMS SO HE WAS TAKEN TO THE BR AND CLEANED WITH THE TECH, LINEN CHANGED.
== END 2022-02-08 22:02 | disposition home or self-care (01) ==
LOC: ER 15:38
DX: F10.129 Alcohol abuse with intoxication, unspecified (principal); F31.9 Bipolar disorder, unspecified; F15.90 Other stimulant use, unspecified, uncomplicated; Z72.89 Other problems related to lifestyle; Z79.899 Other long term (current) drug therapy; V87.7XXA Person injured in collision between other specified motor vehicles (traffic), initial encounter; Y92.89 Other specified places as the place of occurrence of the external cause; Y93.89 Activity, other specified; Y99.8 Other external cause status; Y90.0 Blood alcohol level of less than 20 mg/100 ml
CPT/HCPCS: 36415; 70450; 71045; 72125; 80053; 80320; 81001; 82948; 85007; 85025; 93005; 96360; 96361; 99285; J7030

== ENCOUNTER 2023-09-13 22:07 | Emergency (ER) | payer MEDICAID ==
[~2023-09-13] VITALS: Ht 167.6 cm; Wt 72.7 kg
[~2023-09-13 22:07] MED LIST changes: +BUPR-564 PO; -BUPR300T86 PO; -NALT50TA PO; +NALT50TA5 PO; +ONDA-243 PO; -ONDA4TAB12 PO
[2023-09-13 23:39] LABS: BASOPHILS % (AUTO) 0.7 % (0-1); EOSINOPHILS # (AUTO) 0.2 X10'3 (0-0.9); EOSINOPHILS % (AUTO) 3.1 % (0-6); HEMATOCRIT 41.7 % (42.0-52.0); HEMOGLOBIN 14.5 g/dl (14.0-17.9); LYMPHOCYTES # (AUTO) 3.1 X10'3 (1.1-4.8); LYMPHOCYTES % (AUTO) 48.8 % (21-51); MEAN CORPUSCULAR HEMOGLOBIN 29.2 PG (27.0-31.0); MEAN CORPUSCULAR HGB CONC 34.7 g/dL (33.0-36.5); MEAN PLATELET VOLUME 6.3 FL (7.4-10.4); MONOCYTES # (AUTO) 0.5 X10'3 (0-0.9); MONOCYTES % (AUTO) 7.3 % (2-12); NEUTROPHILS # (AUTO) 2.5 X10'3 (1.8-7.7); NEUTROPHILS % (AUTO) 40.1 % (42-75); PLATELET COUNT 361 X10'3 (140-440); RED BLOOD COUNT 4.97 X10'6 (4.70-6.10); RED CELL DISTRIBUTION WIDTH 14.2 % (11.5-14.5); WHITE BLOOD COUNT 6.3 X10'3 (4.5-11.0)
[2023-09-13 23:41] LABS: BILIRUBIN,URINE NEGATIVE (Neg); CLARITY,URINE CLEAR (Clear); COLOR,URINE YELLOW (Yellow); GLUCOSE, URINE NEGATIVE (Neg); KETONES,URINE TRACE mg/dl (Neg); LEUKOCYTE ESTERASE ,URINE NEGATIVE (Neg); NITRITES, URINE NEGATIVE (Neg); OCCULT BLOOD,URINE NEGATIVE (Neg); PROTEIN,URINE NEGATIVE (Neg); UROBILINOGEN,URINE 0.2 E.U/dL (0.2-1.0)
[2023-09-13 23:52] LABS: UA COLLECTION TYPE NON-SPECIFIED
[2023-09-13 23:53] LABS: APTT 27 SECONDS (22-32); PROTHROMBIN TIME 10.7 SECONDS (9.0-12.0)
[2023-09-13 23:54] LABS: ALBUMIN 3.6 G/DL (3.4-5.0); ALKALINE PHOSPHATASE 147 IU/L (46-116); BILIRUBIN,TOTAL 0.5 MG/DL (0.1-1.0); BLOOD UREA NITROGEN 21 MG/DL (7-18); BUN/CREATININE RATIO 22.3 (10.0-20.0); CREATININE 0.94 MG/DL (0.60-1.10); LIPASE 14 U/L (16-77); TOTAL PROTEIN 7.1 G/DL (6.4-8.2); eGFR 87 ML/MIN
[2023-09-14 00:21] LABS: ANION GAP 16 (8-16); CHLORIDE 108 MMOL/L (99-107); GLUCOSE 179 MG/DL (70-104); POTASSIUM 3.3 MMOL/L (3.5-5.1); SODIUM 143 MMOL/L (135-145)
[2023-09-14 00:24] LABS: ALANINE AMINOTRANSFERASE 69 U/L (12-78); ASPARTATE AMINO TRANSFERASE 34 U/L (10-37)
[2023-09-14] MEDS ORDERED: HYDR-3965 PO (01:52)
[2023-09-14] MEDS ORDERED: AMOX-419 PO (01:52)
[2023-09-14] MEDS ORDERED: ONDA-245 PO (01:52)
[2023-09-14] MEDS: potassium Cl 20 mEq SR tablet PO STA (02:03)
[2023-09-14] MEDS: ondansetron 4mg rapidly disintigrating tab PO ONE (02:03)
[2023-09-14] MEDS: HYDROcodone/acetaminophen 5mg/325mg tablet PO ONE (02:03)
[2023-09-14] MEDS: amox tr/potassium clavulanate 875/125mg TAB PO ONE (02:03)
[2023-09-14 02:08] VITALS: BP 132/95; PULSE 82; RESP 18; TEMP 98.4; O2SAT 99
== END 2023-09-14 02:11 | disposition home or self-care (01) ==
LOC: ER 22:08
DX: K57.92 Diverticulitis of intestine, part unspecified, without perforation or abscess without bleeding (principal); E87.6 Hypokalemia; R39.11 Hesitancy of micturition; F31.9 Bipolar disorder, unspecified; F10.10 Alcohol abuse, uncomplicated; F15.90 Other stimulant use, unspecified, uncomplicated; Z88.1 Allergy status to other antibiotic agents; Z79.899 Other long term (current) drug therapy
CPT/HCPCS: 36415; 74176; 80053; 81003; 83605; 83690; 84145; 85025; 85610; 85730; 87040; 99284